=== PATIENT | male | born 1960 | race Caucasian/White ===

== ENCOUNTER 2017-02-27 00:09 | Emergency (ER) | payer SELFPAY ==
[~2017-02-27] VITALS: Ht 165.1 cm; Wt 66.0 kg
[2017-02-27 00:22] LABS: GLUCOSE,POINT OF CARE 128 MG/DL (70-110)
[2017-02-27 01:45] VITALS: BP 141/89
== END 2017-02-27 01:50 | disposition home or self-care (01) ==
LOC: EMS 00:13
DX: S91.311A Laceration without foreign body, right foot, initial encounter (principal); R03.0 Elevated blood-pressure reading, without diagnosis of hypertension; E11.9 Type 2 diabetes mellitus without complications; F17.210 Nicotine dependence, cigarettes, uncomplicated; W25.XXXA Contact with sharp glass, initial encounter; Y93.01 Activity, walking, marching and hiking; Y92.89 Other specified places as the place of occurrence of the external cause; Y99.8 Other external cause status
CPT/HCPCS: 82962; 99284

== ENCOUNTER 2018-06-12 15:47 | Emergency (ER) | payer OTHER ==
[~2018-06-12] VITALS: Ht 165.1 cm; Wt 68.2 kg
[2018-06-12 16:09] LABS: GLUCOSE,POINT OF CARE 183 MG/DL (70-110)
[2018-06-12] MEDS ORDERED: TRIAMCINOLONE ACETONIDE 40 MG/ML VIAL IM ONE (18:45)
[2018-06-12] MEDS ORDERED: HydrOXYzine HCL 25 MG TABLET PO ONE (18:45)
[2018-06-12] MEDS ORDERED: AQUAPHOR OINTMENT 50 GM TUBE TP ONE (18:45)
[2018-06-12 18:50] VITALS: BP 157/99
== END 2018-06-12 19:21 | disposition home or self-care (01) ==
LOC: EMS 15:47
DX: L30.9 Dermatitis, unspecified (principal); E11.9 Type 2 diabetes mellitus without complications; F17.210 Nicotine dependence, cigarettes, uncomplicated
CPT/HCPCS: 82962; 96372; 99283; 99406; J3301

== ENCOUNTER 2018-06-27 05:58 | Inpatient (IN) | payer OTHER ==
[~2018-06-27] VITALS: Ht 162.6 cm; Wt 59.9 kg
[2018-06-27] MEDS ORDERED: IPRATROPIUM BROMIDE 0.5 MG/2.5 ML NEB SOLUTION NEB ONE (06:45)
[2018-06-27] MEDS ORDERED: ALBUTEROL SULFATE 2.5 MG/0.5 ML NEB SOLUTION NEB ONE (06:45)
[2018-06-27] MEDS ORDERED: ASPIRIN 81 MG CHEWABLE TABLET PO ONE (06:45)
[2018-06-27 06:53] LABS: BASOPHILS % (AUTO) 1.2 % (0.0-2.0); EOSINOPHILS % (AUTO) 5.8 % (1.0-6.0); HEMATOCRIT 43.1 % (41-53); HEMOGLOBIN 13.8 g/dL (13.5-17.5); LYMPHOCYTES # (AUTO) 0.8 K/uL (1.0-4.8); LYMPHOCYTES % (AUTO) 10.8 % (22.0-44.0); MEAN CORPUSCULAR HEMOGLOBIN 21.5 pg (26.0-34.0); MEAN CORPUSCULAR HGB CONC 31.9 G/dL (31.0-37.0); MEAN CORPUSCULAR VOLUME 67 fL (80-100); MONOCYTES # (AUTO) 0.7 K/uL (0.1-1.0); NEUTROPHILS # (AUTO) 5.4 K/uL (1.8-7.7); NEUTROPHILS % (AUTO) 73.2 % (40.0-70.0); PLATELET COUNT (AUTO) 292 K/uL (150-450); RED BLOOD CELL COUNT(AUTO) 6.41 MIL/uL (4.50-5.90); RED CELL DISTRIBUTION WIDTH 17.6 % (11.5-14.5)
[2018-06-27 07:04] LABS: CALCIUM, TOTAL 7.6 mg/dL (8.8-10.5); CREATININE 1.75 mg/dL (0.60-1.30); POTASSIUM 4.3 mmol/L (3.5-5.1)
[2018-06-27 07:29] LABS: ALBUMIN 2.9 g/dL (3.4-5.0); BILIRUBIN,TOTAL 0.3 mg/dL (0.1-1.0); TOTAL PROTEIN, SERUM 6.2 g/dL (6.4-8.2)
[2018-06-27 09:04] LABS: APPEARANCE,URINE CLEAR (CLEAR); BILIRUBIN,URINE NEGATIVE (NEGATIVE); GLUCOSE, URINE (UA) 100 mg/dL (NEGATIVE); KETONES,URINE NEGATIVE (NEGATIVE); LEUKOCYTE ESTERASE ,URINE NEGATIVE (NEGATIVE); NITRATE,URINE NEGATIVE (NEGATIVE); OCCULT BLOOD,URINE NEGATIVE (NEGATIVE); PROTEIN,URINE TRACE (NEGATIVE); UROBILINOGEN,URINE 0.2 mg/dL (<=1.0)
[2018-06-27 09:28] LABS: RBC,URINE None Seen /HPF (0-2); WBC,URINE 0-2 /HPF (0-5)
[2018-06-27 09:29] LABS: BACTERIA,URINE Rare /HPF (None Seen); SQUAMOUS EPITHELIAL CELL,UR Few /LPF (None Seen)
[2018-06-27] MEDS ORDERED: ONDANSETRON HCL 4 MG/2 ML VIAL IVP PRN ×2 (11:15→14:15)
[2018-06-27] MEDS ORDERED: ACETAMINOPHEN 325 MG TABLET PO PRN ×2 (11:15→14:15)
[2018-06-27] MEDS ORDERED: 0.9% SODIUM CHLORIDE 10 ML SYRINGE IVP PRN (11:15)
[2018-06-27 11:41] VITALS: BP 162/86
[2018-06-27] MEDS ORDERED: PNEUMOCOCCAL VACCINE POLYVALENT 0.5 ML VIAL [PPSV23] IM ONE (13:15)
[2018-06-27] MEDS ORDERED: HYDROCODONE/ACETAMINOPHEN 5-325 MG TABLET PO PRN (14:15)
[2018-06-27] MEDS ORDERED: MAGNESIUM HYDROXIDE SUSPENSION 30 ML UDCUP PO PRN (14:15)
[2018-06-27] MEDS ORDERED: MORPHINE SULFATE 2 MG/ML SYRINGE IVP PRN (14:15)
[2018-06-27] MEDS ORDERED: ZOLPIDEM TARTRATE 5 MG TABLET PO PRN (14:15)
[2018-06-27] MEDS ORDERED: BISACODYL 10 MG RECTAL RECTAL SUPPOSITORY PR PRN (14:15)
[2018-06-27] MEDS: HEPARIN SODIUM,PORCINE 5,000 UNITS/ML VIAL SQ SCH (15:21)
[2018-06-27 16:27] VITALS: BP 177/102
[2018-06-27 16:47] VITALS: BP 165/89
[2018-06-27 21:06] VITALS: BP 143/83
[2018-06-27] MEDS: FUROSEMIDE 20 MG/2 ML VIAL IVP SCH (22:03)
[2018-06-27] MEDS: DOCUSATE SODIUM 100 MG CAPSULE PO SCH (22:03)
[2018-06-27] MEDS: CARVEDILOL 6.25 MG TABLET PO SCH (22:03)
[2018-06-28] VITALS (7 sets, daily range): BP systolic 141–161; BP diastolic 81–106
[2018-06-28] MEDS: HEPARIN SODIUM,PORCINE 5,000 UNITS/ML VIAL SQ SCH ×3 (00:15→17:10)
[2018-06-28 02:47] LABS: AMPHET/METH SCREEN,URINE POSITIVE (NEGATIVE); BARBITURATE SCREEN, URINE NEGATIVE (NEGATIVE); BENZODIAZEPINES SCREEN,URINE NEGATIVE (NEGATIVE); CANNABINOID SCREEN,URINE NEGATIVE (NEGATIVE); COCAINE SCREEN,URINE NEGATIVE (NEGATIVE); METHADONE SCREEN, URINE NEGATIVE (NEGATIVE); OPIATE SCREEN,URINE NEGATIVE (NEGATIVE); PHENCYCLIDINE SCREEN,URINE NEGATIVE (NEGATIVE)
[2018-06-28] MEDS: LISINOPRIL 5 MG TABLET PO SCH (07:35)
[2018-06-28] MEDS: CARVEDILOL 6.25 MG TABLET PO SCH ×2 (07:35→19:46)
[2018-06-28] MEDS: ASPIRIN 81 MG EC TABLET PO SCH (07:35)
[2018-06-28] MEDS: PANTOPRAZOLE SODIUM 40 MG DR TABLET PO SCH (07:35)
[2018-06-28] MEDS: FUROSEMIDE 20 MG/2 ML VIAL IVP SCH (07:35)
[2018-06-28] MEDS: DOCUSATE SODIUM 100 MG CAPSULE PO SCH ×2 (07:41→19:46)
[2018-06-28] MEDS: FUROSEMIDE 40 MG/4 ML VIAL IVP SCH (19:46)
[2018-06-29] VITALS (7 sets, daily range): BP systolic 127–158; BP diastolic 79–109
[2018-06-29 05:54] LABS: BASOPHILS % (AUTO) 1.2 % (0.0-2.0); EOSINOPHILS % (AUTO) 7.1 % (1.0-6.0); HEMATOCRIT 50.4 % (41-53); HEMOGLOBIN 16.2 g/dL (13.5-17.5); LYMPHOCYTES % (AUTO) 13.4 % (22.0-44.0); MEAN CORPUSCULAR HEMOGLOBIN 21.7 pg (26.0-34.0); MEAN CORPUSCULAR HGB CONC 32.2 G/dL (31.0-37.0); MEAN CORPUSCULAR VOLUME 67 fL (80-100); MONOCYTES # (AUTO) 0.7 K/uL (0.1-1.0); MONOCYTES % (AUTO) 9.2 % (2.0-9.0); NEUTROPHILS # (AUTO) 5.2 K/uL (1.8-7.7); NEUTROPHILS % (AUTO) 69.1 % (40.0-70.0); PLATELET COUNT (AUTO) 292 K/uL (150-450); RED BLOOD CELL COUNT(AUTO) 7.47 MIL/uL (4.50-5.90); RED CELL DISTRIBUTION WIDTH 17.6 % (11.5-14.5)
[2018-06-29 06:24] LABS: CALCIUM, TOTAL 8.3 mg/dL (8.8-10.5); CREATININE 1.74 mg/dL (0.60-1.30); POTASSIUM 4.5 mmol/L (3.5-5.1)
[2018-06-29] MEDS: CARVEDILOL 6.25 MG TABLET PO SCH ×2 (07:46→20:03)
[2018-06-29] MEDS: PANTOPRAZOLE SODIUM 40 MG DR TABLET PO SCH (07:46)
[2018-06-29] MEDS: LISINOPRIL 5 MG TABLET PO SCH (07:46)
[2018-06-29] MEDS: FUROSEMIDE 40 MG/4 ML VIAL IVP SCH (07:46)
[2018-06-29] MEDS: HEPARIN SODIUM,PORCINE 5,000 UNITS/ML VIAL SQ SCH ×4 (07:46→23:19)
[2018-06-29] MEDS: ASPIRIN 81 MG EC TABLET PO SCH (07:46)
[2018-06-29] MEDS: DOCUSATE SODIUM 100 MG CAPSULE PO SCH ×2 (07:47→20:03)
[2018-06-29] MEDS: FUROSEMIDE 20 MG TABLET PO SCH (20:03)
[2018-06-30 03:49] VITALS: BP 141/76
[2018-06-30 07:09] VITALS: BP 132/91
[2018-06-30] MEDS: HEPARIN SODIUM,PORCINE 5,000 UNITS/ML VIAL SQ SCH (08:09)
[2018-06-30] MEDS: DOCUSATE SODIUM 100 MG CAPSULE PO SCH (08:09)
[2018-06-30] MEDS: LISINOPRIL 5 MG TABLET PO SCH (08:09)
[2018-06-30] MEDS: CARVEDILOL 6.25 MG TABLET PO SCH (08:09)
[2018-06-30] MEDS: FUROSEMIDE 20 MG TABLET PO SCH (08:09)
[2018-06-30] MEDS: PANTOPRAZOLE SODIUM 40 MG DR TABLET PO SCH (08:09)
[2018-06-30] MEDS: ASPIRIN 81 MG EC TABLET PO SCH (08:09)
[2018-06-30] MEDS ORDERED: ASPI-556 PO (11:17)
[2018-06-30] MEDS ORDERED: LISI5TAB PO (11:18)
[2018-06-30] MEDS ORDERED: CARV6.2579 PO (11:18)
[2018-06-30] MEDS ORDERED: FURO-152 PO (11:18)
[2018-06-30 11:25] VITALS: BP 123/81
== END 2018-06-30 14:10 | disposition home or self-care (01) | DRG 194 ==
LOC: EMS 05:58 → 5S 10:37
PROVIDERS: ADMIT Hospitalist; ATTEND Hospitalist
DX: I13.0 Hypertensive heart and chronic kidney disease with heart failure and stage 1 through stage 4 chronic kidney disease, or unspecified chronic kidney disease (principal); N17.9 Acute kidney failure, unspecified; E11.22 Type 2 diabetes mellitus with diabetic chronic kidney disease; N18.3 Chronic kidney disease, stage 3 (moderate); I16.0 Hypertensive urgency; I50.43 Acute on chronic combined systolic (congestive) and diastolic (congestive) heart failure; E78.5 Hyperlipidemia, unspecified; F17.210 Nicotine dependence, cigarettes, uncomplicated; Z82.49 Family history of ischemic heart disease and other diseases of the circulatory system; Z91.14 Patient's other noncompliance with medication regimen
CPT/HCPCS: 80307; 93005; 93306; 94640; 99285; J1644; J1940

== ENCOUNTER 2018-12-15 12:42 | Inpatient (IN) | payer OTHER ==
[~2018-12-15] VITALS: Ht 165.1 cm; Wt 68.8 kg
[~2018-12-15 12:42] MED LIST: ASPI-556 PO; CARV6.2579 PO; FURO-152 PO; ISOS30TA6 PO; LISI5TAB PO
[2018-12-15 12:59] LABS: GLUCOSE,POINT OF CARE 145 MG/DL (70-110)
[2018-12-15 13:54] LABS: BASOPHILS % (AUTO) 0.5 % (0.0-2.0); EOSINOPHILS % (AUTO) 2.7 % (1.0-6.0); HEMATOCRIT 47.2 % (41-53); HEMOGLOBIN 14.9 g/dL (13.5-17.5); LYMPHOCYTES # (AUTO) 0.9 K/uL (1.0-4.8); LYMPHOCYTES % (AUTO) 13.1 % (22.0-44.0); MEAN CORPUSCULAR HGB CONC 31.5 G/dL (31.0-37.0); MEAN CORPUSCULAR VOLUME 67 fL (80-100); MONOCYTES # (AUTO) 0.9 K/uL (0.1-1.0); NEUTROPHILS # (AUTO) 4.9 K/uL (1.8-7.7); NEUTROPHILS % (AUTO) 70.7 % (40.0-70.0); PLATELET COUNT (AUTO) 172 K/uL (150-450); RED BLOOD CELL COUNT(AUTO) 7.07 MIL/uL (4.50-5.90); RED CELL DISTRIBUTION WIDTH 15.9 % (11.5-14.5)
[2018-12-15] MEDS ORDERED: SODIUM CHLORIDE 0.9% 1,000 ML IV ONE ×2 (14:00→16:30)
[2018-12-15 14:08] LABS: CREATININE 3.64 mg/dL (0.60-1.30)
[2018-12-15 14:10] LABS: ALBUMIN 3.6 g/dL (3.4-5.0); BILIRUBIN,TOTAL 0.3 mg/dL (0.1-1.0); TOTAL PROTEIN, SERUM 8.4 g/dL (6.4-8.2)
[2018-12-15 14:16] LABS: LACTIC ACID 0.7 mmol/L (0.4-2.0)
[2018-12-15] MEDS ORDERED: IPRATROPIUM BROMIDE 0.5 MG/2.5 ML NEB SOLUTION NEB ONE (15:00)
[2018-12-15] MEDS ORDERED: PredniSONE 20 MG TABLET PO ONE (15:00)
[2018-12-15] MEDS ORDERED: ALBUTEROL SULFATE 2.5 MG/0.5 ML NEB SOLUTION NEB ONE (15:00)
[2018-12-15] MEDS ORDERED: 0.9% SODIUM CHLORIDE 15 ML NEB SOLUTION NEB ONE (15:35)
[2018-12-15 15:49] LABS: INFLUENZA TYPE A NEGATIVE FOR TYPE A (NEGATIVE); INFLUENZA TYPE B NEGATIVE FOR TYPE B (NEGATIVE)
[2018-12-15] MEDS ORDERED: 0.9% SODIUM CHLORIDE 10 ML SYRINGE IVP PRN ×2 (16:30→23:15)
[2018-12-15] MEDS ORDERED: ONDANSETRON HCL 4 MG/2 ML VIAL IVP PRN ×2 (16:30→23:15)
[2018-12-15] MEDS ORDERED: ACETAMINOPHEN 325 MG TABLET PO PRN (16:30)
[2018-12-15] MEDS ORDERED: MAG HYDROX/AL HYDROX/SIMETH 30 ML SUSP UDCUP PO ONE (19:15)
[2018-12-15] MEDS ORDERED: 0.9% SODIUM CHLORIDE 5 ML NEB SOLUTION NEB ONE (19:29)
[2018-12-15] MEDS ORDERED: ASPIRIN 81 MG CHEWABLE TABLET PO ONE (19:30)
[2018-12-15] MEDS ORDERED: NITROGLYCERIN 0.3 MG SUBLINGUAL TABLET #100 SL ONE (19:30)
[2018-12-15] MEDS ORDERED: ASPIRIN 325 MG TABLET PO ONE (19:30)
[2018-12-15] MEDS ORDERED: ALBUTEROL SULFATE 2.5 MG/0.5 ML NEB SOLUTION NEB SCH (20:00)
[2018-12-15] MEDS ORDERED: IPRATROPIUM BROMIDE 0.5 MG/2.5 ML NEB SOLUTION NEB SCH (20:00)
[2018-12-15 21:40] VITALS: BP 141/67
[2018-12-15 23:00] VITALS: BP 114/64
[2018-12-15] MEDS ORDERED: INSULIN LISPRO 100 UNITS/ML SQ PRN (23:15)
[2018-12-15] MEDS ORDERED: IPRATROPIUM BROMIDE 0.5 MG/2.5 ML NEB SOLUTION NEB PRN (23:15)
[2018-12-15] MEDS ORDERED: ALBUTEROL SULFATE 2.5 MG/0.5 ML NEB SOLUTION NEB PRN (23:15)
[2018-12-15] MEDS ORDERED: ACETAMINOPHEN 650 MG/20.3 ML SOLUTION UDCUP PO PRN (23:15)
[2018-12-15] MEDS ORDERED: ZOLPIDEM TARTRATE 5 MG TABLET PO PRN (23:15)
[2018-12-15] MEDS ORDERED: GLUCAGON,HUMAN RECOMBINANT 1 MG VIAL IM PRN (23:15)
[2018-12-15] MEDS: MethylPREDNISolone SOD SUCC 40 MG/ML VIAL IVP SCH (23:31)
[2018-12-15] MEDS: DOCUSATE SODIUM 100 MG CAPSULE PO SCH (23:31)
[2018-12-15] MEDS: CARVEDILOL 6.25 MG TABLET PO SCH (23:32)
[2018-12-16] MEDS ORDERED: DEXTROSE 50%-WATER 25 GM/50 ML SYG IVP PRN (00:30)
[2018-12-16] MEDS: ALBUTEROL SULFATE 2.5 MG/0.5 ML NEB SOLUTION NEB SCH ×4 (02:14→20:08)
[2018-12-16] MEDS: IPRATROPIUM BROMIDE 0.5 MG/2.5 ML NEB SOLUTION NEB SCH ×4 (02:14→20:08)
[2018-12-16 05:24] VITALS: BP 110/59
[2018-12-16] MEDS: INSULIN LISPRO 100 UNITS/ML SQ PRN ×3 (06:08→18:24)
[2018-12-16 06:54] LABS: GLUCOMETER DEV NAME(LOC) 5N.1; GLUCOSE,POINT OF CARE 168 MG/DL (70-110)
[2018-12-16 07:01] LABS: BASOPHILS % (AUTO) 0.2 % (0.0-2.0); EOSINOPHILS % (AUTO) 0 % (1.0-6.0); HEMATOCRIT 45.2 % (41-53); HEMOGLOBIN 13.9 g/dL (13.5-17.5); LYMPHOCYTES # (AUTO) 0.4 K/uL (1.0-4.8); LYMPHOCYTES % (AUTO) 9.7 % (22.0-44.0); MEAN CORPUSCULAR HGB CONC 30.7 G/dL (31.0-37.0); MEAN CORPUSCULAR VOLUME 68 fL (80-100); MONOCYTES # (AUTO) 0.4 K/uL (0.1-1.0); MONOCYTES % (AUTO) 9.2 % (2.0-9.0); NEUTROPHILS # (AUTO) 3.3 K/uL (1.8-7.7); NEUTROPHILS % (AUTO) 80.9 % (40.0-70.0); PLATELET COUNT (AUTO) 169 K/uL (150-450); RED BLOOD CELL COUNT(AUTO) 6.61 MIL/uL (4.50-5.90); RED CELL DISTRIBUTION WIDTH 15.8 % (11.5-14.5)
[2018-12-16 07:50] VITALS: BP 118/56
[2018-12-16] MEDS ORDERED: LISINOPRIL 5 MG TABLET PO SCH (09:00)
[2018-12-16] MEDS ORDERED: ISOSORBIDE MONONITRATE 30 MG ER TABLET PO SCH (09:00)
[2018-12-16] MEDS ORDERED: ENOXAPARIN SODIUM 40 MG/0.4 ML PF SYRINGE SQ SCH (09:00)
[2018-12-16] MEDS: CARVEDILOL 6.25 MG TABLET PO SCH (09:15)
[2018-12-16] MEDS: PANTOPRAZOLE SODIUM 40 MG/VIAL IVP SCH (09:16)
[2018-12-16] MEDS: DOCUSATE SODIUM 100 MG CAPSULE PO SCH ×2 (09:16→19:41)
[2018-12-16] MEDS: MethylPREDNISolone SOD SUCC 40 MG/ML VIAL IVP SCH ×2 (09:16→19:41)
[2018-12-16] MEDS: ASPIRIN 81 MG EC TABLET PO SCH (09:16)
[2018-12-16] MEDS ORDERED: SODIUM CHLORIDE 0.9% 1,000 ML IV ONE (10:45)
[2018-12-16 10:58] VITALS: BP 128/72
[2018-12-16] MEDS ORDERED: DIVA250T4 PO (14:16)
[2018-12-16] MEDS ORDERED: LINA5TAB PO (14:16)
[2018-12-16 14:49] LABS: GLUCOMETER DEV NAME(LOC) 5N.1; GLUCOSE,POINT OF CARE 150 MG/DL (70-110)
[2018-12-16 15:43] VITALS: BP 113/66
[2018-12-16 19:01] LABS: CALCIUM, TOTAL 7.8 mg/dL (8.8-10.5); CREATININE 1.78 mg/dL (0.60-1.30); MAGNESIUM 2.7 mg/dL (1.80-2.40); PHOSPHORUS 2.8 mg/dL (2.5-4.9); POTASSIUM 4.7 mmol/L (3.5-5.1)
[2018-12-16 20:03] VITALS: BP 105/61
[2018-12-16 23:23] VITALS: BP 129/71
[2018-12-17] MEDS: SODIUM CHLORIDE 0.9% 1,000 ML IV SCH ×2 (01:16→08:00)
[2018-12-17] MEDS: ALBUTEROL SULFATE 2.5 MG/0.5 ML NEB SOLUTION NEB SCH ×4 (02:21→20:00)
[2018-12-17] MEDS: IPRATROPIUM BROMIDE 0.5 MG/2.5 ML NEB SOLUTION NEB SCH ×4 (02:21→20:00)
[2018-12-17 03:24] LABS: APPEARANCE,URINE CLEAR (CLEAR); BILIRUBIN,URINE NEGATIVE (NEGATIVE); GLUCOSE, URINE (UA) 500 mg/dL (NEGATIVE); KETONES,URINE NEGATIVE (NEGATIVE); LEUKOCYTE ESTERASE ,URINE NEGATIVE (NEGATIVE); NITRATE,URINE NEGATIVE (NEGATIVE); OCCULT BLOOD,URINE NEGATIVE (NEGATIVE); PROTEIN,URINE NEGATIVE (NEGATIVE); UROBILINOGEN,URINE 0.2 mg/dL (<=1.0)
[2018-12-17 03:55] LABS: CREATININE,URINE RANDOM 73.2 mg/dL (30.0-125.0); SODIUM,URINE RANDOM 38 mmol/l (20-110); UREA NITROGEN,URINE RANDOM 1357 mg/dL (350-1000)
[2018-12-17 04:08] LABS: BACTERIA,URINE None Seen /HPF (None Seen); RBC,URINE None Seen /HPF (0-2); SQUAMOUS EPITHELIAL CELL,UR None Seen /LPF (None Seen); WBC,URINE None Seen /HPF (0-5)
[2018-12-17 04:35] VITALS: BP 136/68
[2018-12-17 05:54] LABS: GLUCOMETER DEV NAME(LOC) 5S.1; GLUCOSE,POINT OF CARE 231 MG/DL (70-110)
[2018-12-17 05:59] LABS: BASOPHILS % (AUTO) 0.1 % (0.0-2.0); EOSINOPHILS % (AUTO) 0 % (1.0-6.0); HEMOGLOBIN 12.5 g/dL (13.5-17.5); LYMPHOCYTES # (AUTO) 0.4 K/uL (1.0-4.8); MEAN CORPUSCULAR HEMOGLOBIN 21.2 pg (26.0-34.0); MEAN CORPUSCULAR HGB CONC 31.2 G/dL (31.0-37.0); MEAN CORPUSCULAR VOLUME 68 fL (80-100); MONOCYTES # (AUTO) 0.4 K/uL (0.1-1.0); MONOCYTES % (AUTO) 6.7 % (2.0-9.0); NEUTROPHILS # (AUTO) 5.8 K/uL (1.8-7.7); PLATELET COUNT (AUTO) 165 K/uL (150-450); RED BLOOD CELL COUNT(AUTO) 5.91 MIL/uL (4.50-5.90); RED CELL DISTRIBUTION WIDTH 15.9 % (11.5-14.5)
[2018-12-17 06:01] LABS: NEUTROPHILS % (AUTO) 87.2 % (40.0-70.0)
[2018-12-17 06:22] LABS: HEMOGLOBIN A1C 7.9 % (4.5-6.2)
[2018-12-17] MEDS: INSULIN LISPRO 100 UNITS/ML SQ PRN (06:31)
[2018-12-17 07:19] VITALS: BP 128/81
[2018-12-17 07:23] LABS: ALBUMIN 2.7 g/dL (3.4-5.0); BILIRUBIN,TOTAL 0.2 mg/dL (0.1-1.0); CALCIUM, TOTAL 7.8 mg/dL (8.8-10.5); CREATININE 1.5 mg/dL (0.60-1.30); MAGNESIUM 2.7 mg/dL (1.80-2.40); POTASSIUM 4.7 mmol/L (3.5-5.1); TOTAL PROTEIN, SERUM 6.4 g/dL (6.4-8.2)
[2018-12-17 08:04] LABS: GLUCOMETER DEV NAME(LOC) 5N.1; GLUCOSE,POINT OF CARE 141 MG/DL (70-110)
[2018-12-17 08:04] LABS: GLUCOMETER DEV NAME(LOC) 5N.1; GLUCOSE,POINT OF CARE 250 MG/DL (70-110)
[2018-12-17] MEDS: DOCUSATE SODIUM 100 MG CAPSULE PO SCH (08:13)
[2018-12-17] MEDS: PANTOPRAZOLE SODIUM 40 MG/VIAL IVP SCH (08:14)
[2018-12-17] MEDS: ASPIRIN 81 MG EC TABLET PO SCH (08:14)
[2018-12-17] MEDS: MethylPREDNISolone SOD SUCC 40 MG/ML VIAL IVP SCH (08:14)
[2018-12-17 11:05] VITALS: BP 142/80
[2018-12-17 13:09] LABS: GLUCOMETER DEV NAME(LOC) 5S.1; GLUCOSE,POINT OF CARE 135 MG/DL (70-110)
[2018-12-17 16:12] VITALS: BP 156/90
== END 2018-12-17 18:30 | disposition home or self-care (01) | DRG 469 ==
LOC: EMS 12:42 → 5S 20:00
PROVIDERS: ADMIT Internal Medicine; ATTEND Internal Medicine
DX: N17.9 Acute kidney failure, unspecified (principal); I95.9 Hypotension, unspecified; I13.0 Hypertensive heart and chronic kidney disease with heart failure and stage 1 through stage 4 chronic kidney disease, or unspecified chronic kidney disease; E11.22 Type 2 diabetes mellitus with diabetic chronic kidney disease; R65.10 Systemic inflammatory response syndrome (SIRS) of non-infectious origin without acute organ dysfunction; I50.32 Chronic diastolic (congestive) heart failure; J44.1 Chronic obstructive pulmonary disease with (acute) exacerbation; F17.210 Nicotine dependence, cigarettes, uncomplicated; N18.9 Chronic kidney disease, unspecified; N40.0 Benign prostatic hyperplasia without lower urinary tract symptoms; E78.5 Hyperlipidemia, unspecified; Z90.49 Acquired absence of other specified parts of digestive tract; Z79.82 Long term (current) use of aspirin; Z79.899 Other long term (current) drug therapy; Z82.49 Family history of ischemic heart disease and other diseases of the circulatory system
CPT/HCPCS: 76770; 82570; 83036; 83605; 83735; 84100; 84300; 84540; 87040; 87804; 93005; 93306; 94640; 94644; 99291; C9113; G0378; J1650; J2920; J7030

== ENCOUNTER 2020-12-13 01:14 | Emergency (ER) | payer MEDICARE, OTHER ==
[~2020-12-13] VITALS: Ht 165.1 cm; Wt 68.2 kg
[~2020-12-13 01:14] MED LIST changes: +DIVA250T4 PO; -FURO-152 PO; -ISOS30TA6 PO; +LINA5TAB PO; -LISI5TAB PO
[2020-12-13 01:26] VITALS: BP 143/93
[2020-12-13] MEDS ORDERED: CEPHALEXIN MONOHYDRATE 500 MG CAPSULE PO ONE (02:15)
[2020-12-13] MEDS ORDERED: SULFAMETHOX/TRIMETH DS 800-160 MG/TABLET PO ONE (02:15)
[2020-12-13] MEDS ORDERED: KETOROLAC TROMETHAMINE 30 MG/ML VIAL IM ONE (02:15)
== END 2020-12-13 02:48 | disposition home or self-care (01) ==
LOC: EMS 01:16
DX: L02.831 Carbuncle of head [any part, except face] (principal); I11.0 Hypertensive heart disease with heart failure; I50.9 Heart failure, unspecified; E11.9 Type 2 diabetes mellitus without complications; F17.210 Nicotine dependence, cigarettes, uncomplicated; Z79.82 Long term (current) use of aspirin
CPT/HCPCS: 96372; 99284; J1885; 99283

== ENCOUNTER 2021-05-29 12:53 | Emergency (ER) | payer OTHER ==
[~2021-05-29] VITALS: Ht 165.1 cm; Wt 70.5 kg
[2021-05-29 13:07] VITALS: BP 137/91
== END 2021-05-29 13:44 | disposition left against medical advice (07) ==
LOC: EMS 12:53
DX: R53.1 Weakness (principal); E11.9 Type 2 diabetes mellitus without complications; I11.0 Hypertensive heart disease with heart failure; I50.9 Heart failure, unspecified; F17.210 Nicotine dependence, cigarettes, uncomplicated; Z79.82 Long term (current) use of aspirin
CPT/HCPCS: 82962; 99282

== ENCOUNTER 2021-07-18 16:35 | Emergency (ER) | payer OTHER ==
[~2021-07-18] VITALS: Ht 165.1 cm; Wt 68.2 kg
[2021-07-18] MEDS ORDERED: DiphenhydrAMINE HCL 50 MG/ML VIAL IVP ONE (18:15)
[2021-07-18] MEDS ORDERED: KETOROLAC TROMETHAMINE 30 MG/ML VIAL IVP ONE (18:15)
[2021-07-18] MEDS ORDERED: METOCLOPRAMIDE HCL 5 MG/ML 2 ML VIAL IVP ONE (18:15)
[2021-07-18 18:21] VITALS: BP 130/81
== END 2021-07-18 19:56 | disposition home or self-care (01) ==
LOC: EMS 16:35
DX: R51.9 Headache, unspecified (principal)
CPT/HCPCS: 70450; 96374; 96375; 99284; J1200; J1885; J2765

== ENCOUNTER 2021-07-28 16:53 | Emergency (ER) | payer OTHER ==
[~2021-07-28] VITALS: Ht 165.1 cm; Wt 68.2 kg
[2021-07-28] MEDS ORDERED: ACETAMINOPHEN 325 MG TABLET PO ONE (17:45)
[2021-07-28] MEDS ORDERED: FUROSEMIDE 20 MG TABLET PO ONE (17:45)
[2021-07-28] MEDS ORDERED: PERMETHRIN 5% 60 GM CREAM TP ONE (17:45)
[2021-07-28 20:00] VITALS: BP 154/87
== END 2021-07-28 20:13 | disposition home or self-care (01) ==
LOC: EMS 16:53
DX: B86 Scabies (principal); I11.0 Hypertensive heart disease with heart failure; I50.9 Heart failure, unspecified; E11.9 Type 2 diabetes mellitus without complications
CPT/HCPCS: 99283; 99284

== ENCOUNTER 2022-05-23 18:57 | Emergency (ER) | payer OTHER ==
[~2022-05-23] VITALS: Ht 165.1 cm; Wt 55.4 kg
[2022-05-23] MEDS ORDERED: NITROGLYCERIN 2% (1 GM=INCH) PACKET TP ONE (19:30)
[2022-05-23] MEDS ORDERED: ASPIRIN 81 MG CHEWABLE TABLET PO ONE (19:30)
[2022-05-23 19:43] LABS: BASOPHILS % (AUTO) 1.2 % (0.0-2.0); EOSINOPHILS % (AUTO) 10.2 % (1.0-6.0); HEMATOCRIT 39.7 % (41-53); HEMOGLOBIN 12.6 g/dL (13.5-17.5); LYMPHOCYTES # (AUTO) 1.1 K/uL (1.0-4.8); LYMPHOCYTES % (AUTO) 21.7 % (22.0-44.0); MEAN CORPUSCULAR HEMOGLOBIN 21.3 pg (26.0-34.0); MEAN CORPUSCULAR HGB CONC 31.7 G/dL (31.0-37.0); MEAN CORPUSCULAR VOLUME 67 fL (80-100); MONOCYTES # (AUTO) 0.5 K/uL (0.1-1.0); MONOCYTES % (AUTO) 9.6 % (2.0-9.0); NEUTROPHILS # (AUTO) 2.8 K/uL (1.8-7.7); NEUTROPHILS % (AUTO) 57.3 % (40.0-70.0); PLATELET COUNT (AUTO) 261 K/uL (150-450); RED BLOOD CELL COUNT(AUTO) 5.92 MIL/uL (4.50-5.90); RED CELL DISTRIBUTION WIDTH 16.8 % (11.5-14.5)
[2022-05-23 20:43] LABS: CALCIUM, TOTAL 8.2 mg/dL (8.8-10.5); CREATININE 1.82 mg/dL (0.60-1.30)
[2022-05-23 20:49] LABS: ALBUMIN 3.1 g/dL (3.4-5.0); BILIRUBIN,TOTAL 0.7 mg/dL (0.1-1.0); TOTAL PROTEIN, SERUM 6.6 g/dL (6.4-8.2)
[2022-05-23] MEDS ORDERED: LINA5TAB PO (20:54)
[2022-05-23] MEDS ORDERED: CARV6.2579 PO (20:54)
[2022-05-23] MEDS ORDERED: ALBUTEROL SULFATE HFA 90 MCG/PUFF 8 GM INHALER IH ONE (21:00)
[2022-05-23 21:39] VITALS: BP 140/105
== END 2022-05-23 22:30 | disposition home or self-care (01) ==
LOC: EMS 18:57
DX: J44.9 Chronic obstructive pulmonary disease, unspecified (principal); I50.9 Heart failure, unspecified; I11.0 Hypertensive heart disease with heart failure; I25.10 Atherosclerotic heart disease of native coronary artery without angina pectoris; E11.9 Type 2 diabetes mellitus without complications; N28.9 Disorder of kidney and ureter, unspecified; F17.210 Nicotine dependence, cigarettes, uncomplicated; Z98.62 Peripheral vascular angioplasty status
CPT/HCPCS: 71045; 80053; 83880; 84484; 85025; 93005; 99285; J3535; 36415-L1; 36415-TC

== ENCOUNTER 2022-06-01 16:27 | Emergency (ER) | payer OTHER ==
[~2022-06-01] VITALS: Ht 165.1 cm; Wt 63.6 kg
[2022-06-01] MEDS ORDERED: FURO20 PO (16:40)
[2022-06-01 17:01] LABS: BASOPHILS % (AUTO) 1.1 % (0.0-2.0); EOSINOPHILS % (AUTO) 8.4 % (1.0-6.0); HEMATOCRIT 39.1 % (41-53); HEMOGLOBIN 12.3 g/dL (13.5-17.5); LYMPHOCYTES % (AUTO) 16.5 % (22.0-44.0); MEAN CORPUSCULAR HEMOGLOBIN 21.1 pg (26.0-34.0); MEAN CORPUSCULAR HGB CONC 31.5 G/dL (31.0-37.0); MEAN CORPUSCULAR VOLUME 67 fL (80-100); MONOCYTES # (AUTO) 0.6 K/uL (0.1-1.0); MONOCYTES % (AUTO) 9.2 % (2.0-9.0); NEUTROPHILS % (AUTO) 64.8 % (40.0-70.0); PLATELET COUNT (AUTO) 259 K/uL (150-450); RED BLOOD CELL COUNT(AUTO) 5.83 MIL/uL (4.50-5.90); RED CELL DISTRIBUTION WIDTH 17.3 % (11.5-14.5)
[2022-06-01 17:10] LABS: PLATELET MORPHOLOGY COMMENT LARGE PLTS PRESENT
[2022-06-01 17:17] LABS: CALCIUM, TOTAL 8.3 mg/dL (8.8-10.5); CREATININE 2.1 mg/dL (0.60-1.30); POTASSIUM 3.5 mmol/L (3.5-5.1)
[2022-06-01 17:24] LABS: ALBUMIN 3.1 g/dL (3.4-5.0); BILIRUBIN,TOTAL 0.3 mg/dL (0.1-1.0); TOTAL PROTEIN, SERUM 6.7 g/dL (6.4-8.2)
[2022-06-01] MEDS ORDERED: PredniSONE 20 MG TABLET PO ONE (17:45)
[2022-06-01] MEDS ORDERED: ALBUTEROL SULFATE 2.5 MG/0.5 ML NEB SOLUTION NEB ONE (17:45)
[2022-06-01] MEDS ORDERED: MethylPREDNISolone SOD SUCC 125 MG/2 ML VIAL IVP ONE (17:45)
[2022-06-01] MEDS ORDERED: IPRATROPIUM BROMIDE 0.5 MG/2.5 ML NEB SOLUTION NEB ONE (17:45)
[2022-06-01 18:41] LABS: COVID AG,FIA SOURCE NASOPHARYNGEAL
[2022-06-01] MEDS ORDERED: ALBUTEROL SULFATE HFA 90 MCG/PUFF 8 GM INHALER IH ONE (19:00)
[2022-06-01 19:01] LABS: INFLUENZA TYPE A NEGATIVE FOR TYPE A (NEGATIVE); INFLUENZA TYPE B NEGATIVE FOR TYPE B (NEGATIVE)
[2022-06-01] MEDS ORDERED: AZIT250T9 PO (20:02)
[2022-06-01] MEDS ORDERED: PRED-554 PO (20:02)
[2022-06-01 20:23] VITALS: BP 135/75
== END 2022-06-02 04:59 | disposition home or self-care (01) ==
LOC: EMS 16:27
DX: J44.1 Chronic obstructive pulmonary disease with (acute) exacerbation (principal); I25.10 Atherosclerotic heart disease of native coronary artery without angina pectoris; I13.0 Hypertensive heart and chronic kidney disease with heart failure and stage 1 through stage 4 chronic kidney disease, or unspecified chronic kidney disease; N18.9 Chronic kidney disease, unspecified; I50.9 Heart failure, unspecified; E11.9 Type 2 diabetes mellitus without complications; F17.210 Nicotine dependence, cigarettes, uncomplicated; Z98.890 Other specified postprocedural states; Z20.822 Contact with and (suspected) exposure to COVID-19
CPT/HCPCS: 99285; 71045; 87426; 80053; 83880; 84484; 85025; 87804; 36415; 94640; 93005; J7512; J3535; J7613

== ENCOUNTER 2022-06-11 02:42 | Emergency (ER) | payer OTHER ==
[~2022-06-11] VITALS: Ht 165.1 cm; Wt 63.2 kg
[~2022-06-11 02:42] MED LIST changes: +FURO20 PO; +PRED-554 PO
[2022-06-11 02:55] VITALS: BP 156/92
== END 2022-06-11 04:23 | disposition left against medical advice (07) ==
LOC: EMS 02:43
DX: Z53.21 Procedure and treatment not carried out due to patient leaving prior to being seen by health care provider (principal)

== ENCOUNTER 2022-06-12 18:15 | Inpatient (IN) | payer OTHER ==
[~2022-06-12] VITALS: Ht 162.6 cm; Wt 57.8 kg
[2022-06-12] MEDS ORDERED: ALBUTEROL SULFATE HFA 90 MCG/PUFF 8 GM INHALER IH ONE (18:45)
[2022-06-12 19:30] LABS: BASOPHILS % (AUTO) 1.8 % (0.0-2.0); EOSINOPHILS % (AUTO) 7.8 % (1.0-6.0); HEMOGLOBIN 12.6 g/dL (13.5-17.5); LYMPHOCYTES # (AUTO) 1.1 K/uL (1.0-4.8); LYMPHOCYTES % (AUTO) 22.5 % (22.0-44.0); MEAN CORPUSCULAR HEMOGLOBIN 21.4 pg (26.0-34.0); MEAN CORPUSCULAR HGB CONC 30.8 G/dL (31.0-37.0); MEAN CORPUSCULAR VOLUME 69 fL (80-100); MONOCYTES # (AUTO) 0.5 K/uL (0.1-1.0); MONOCYTES % (AUTO) 9.5 % (2.0-9.0); NEUTROPHILS # (AUTO) 2.9 K/uL (1.8-7.7); NEUTROPHILS % (AUTO) 58.4 % (40.0-70.0); PLATELET COUNT (AUTO) 315 K/uL (150-450); RED BLOOD CELL COUNT(AUTO) 5.91 MIL/uL (4.50-5.90); RED CELL DISTRIBUTION WIDTH 17.4 % (11.5-14.5)
[2022-06-12 19:38] LABS: ANION GAP 8 mmol/L (8-16); CALCIUM, TOTAL 8.6 mg/dL (8.8-10.5); CARBON DIOXIDE 27 mmol/L (22-29); CHLORIDE 109 mmol/L (98-107); GLUCOSE,RANDOM 129 mg/dL (70-110); SODIUM SERUM 144 mmol/L (136-145); UREA NITROGEN, BLOOD 30 mg/dL (7-18)
[2022-06-12 19:39] LABS: GLOMERULAR FILTR. RATE CALC 34 mL/min (>60)
[2022-06-12 19:45] LABS: ALANINE AMINOTRANSFERASE 60 U/L (12-78); ALBUMIN 3.1 g/dL (3.4-5.0); ALKALINE PHOSPHATASE 120 U/L (46-116); ASPARTATE AMINOTRANSFERASE 27 U/L (15-37); BILIRUBIN,TOTAL 0.3 mg/dL (0.1-1.0); LIPASE 142 U/L (73-393); TOTAL PROTEIN, SERUM 6.8 g/dL (6.4-8.2)
[2022-06-12 19:47] LABS: LACTIC ACID 1.5 mmol/L (0.4-2.0)
[2022-06-12] MEDS ORDERED: MethylPREDNISolone SOD SUCC 125 MG/2 ML VIAL IVP ONE (21:00)
[2022-06-12] MEDS ORDERED: ALBUTEROL SULFATE 2.5 MG/0.5 ML NEB SOLUTION NEB ONE (21:00)
[2022-06-12] MEDS ORDERED: NITROGLYCERIN 2% (1 GM=INCH) PACKET TP ONE (21:00)
[2022-06-12] MEDS ORDERED: FUROSEMIDE 40 MG/4 ML VIAL IVP ONE (21:00)
[2022-06-12] MEDS ORDERED: ASPIRIN 325 MG TABLET PO ONE (21:00)
[2022-06-12] MEDS ORDERED: IPRATROPIUM BROMIDE 0.5 MG/2.5 ML NEB SOLUTION NEB ONE (21:00)
[2022-06-12] MEDS: ALBUTEROL SULFATE 2.5 MG/0.5 ML NEB SOLUTION NEB SCH ×3 (21:15→21:55)
[2022-06-12] MEDS ORDERED: ALBUTEROL SULFATE 2.5 MG/0.5 ML NEB SOLUTION NEB PRN (21:30)
[2022-06-12] MEDS ORDERED: IPRATROPIUM BROMIDE 0.5 MG/2.5 ML NEB SOLUTION NEB PRN (21:30)
[2022-06-12] MEDS ORDERED: ACETAMINOPHEN 325 MG TABLET PO PRN (21:30)
[2022-06-12] MEDS ORDERED: ONDANSETRON HCL 4 MG/2 ML VIAL IVP PRN (21:30)
[2022-06-12] MEDS ORDERED: ZOLPIDEM TARTRATE 5 MG TABLET PO PRN (21:30)
[2022-06-12] MEDS ORDERED: DEXTROSE 50%-WATER 25 GM/50 ML SYRINGE IVP PRN (21:30)
[2022-06-12] MEDS: AmLODIPine BESYLATE 5 MG TABLET PO SCH (21:33)
[2022-06-12 21:51] LABS: AMPHET/METH SCREEN,URINE POSITIVE (NEGATIVE); BARBITURATE SCREEN, URINE NEGATIVE (NEGATIVE); BENZODIAZEPINES SCREEN,URINE NEGATIVE (NEGATIVE); CANNABINOID SCREEN,URINE NEGATIVE (NEGATIVE); COCAINE SCREEN,URINE NEGATIVE (NEGATIVE); METHADONE SCREEN, URINE NEGATIVE (NEGATIVE); OPIATE SCREEN,URINE NEGATIVE (NEGATIVE)
[2022-06-12 21:52] LABS: PHENCYCLIDINE SCREEN,URINE NEGATIVE (NEGATIVE)
[2022-06-12 21:59] LABS: APPEARANCE,URINE CLEAR (CLEAR); BILIRUBIN,URINE NEGATIVE (NEGATIVE); GLUCOSE, URINE (UA) NEGATIVE (NEGATIVE); KETONES,URINE NEGATIVE (NEGATIVE); LEUKOCYTE ESTERASE ,URINE NEGATIVE (NEGATIVE); NITRATE,URINE NEGATIVE (NEGATIVE); OCCULT BLOOD,URINE NEGATIVE (NEGATIVE); PH,URINE 5.5 (5.0-8.0); PROTEIN,URINE NEGATIVE (NEGATIVE); SPECIFIC GRAVITIY, URINE 1.013 (1.003-1.030); UROBILINOGEN,URINE <=1.0 mg/dL (<=1.0)
[2022-06-12 22:08] LABS: BACTERIA,URINE None Seen /HPF (None Seen); RBC,URINE None Seen /HPF (0-2); SQUAMOUS EPITHELIAL CELL,UR Few /LPF (None Seen); WBC,URINE None Seen /HPF (0-5)
[2022-06-12 23:45] VITALS: BP 155/96
[2022-06-13] MEDS: HEPARIN SODIUM,PORCINE 5,000 UNITS/ML VIAL SQ SCH ×3 (00:23→17:36)
[2022-06-13 04:17] VITALS: BP 137/85
[2022-06-13] MEDS: INSULIN LISPRO 100 UNITS/ML SQ PRN ×4 (05:57→21:15)
[2022-06-13] MEDS ORDERED: PNEUMOCOCCAL VACCINE POLYVALENT 0.5 ML VIAL [PPSV23] IM. ONE (07:00)
[2022-06-13 08:16] LABS: GLUCOMETER DEV NAME(LOC) 5S.1B; GLUCOSE,POINT OF CARE 310 MG/DL (70-110)
[2022-06-13 08:32] VITALS: BP 135/88
[2022-06-13] MEDS ORDERED: FAMOTIDINE 20 MG TABLET PO SCH (09:00)
[2022-06-13] MEDS ORDERED: PredniSONE 20 MG TABLET PO SCH (09:00)
[2022-06-13] MEDS: ASPIRIN 81 MG CHEWABLE TABLET PO SCH (09:54)
[2022-06-13] MEDS: DOCUSATE SODIUM 100 MG CAPSULE PO SCH ×2 (09:55→21:00)
[2022-06-13 11:51] VITALS: BP_SYST 126; BP_SYST 134; BP_DIAS 72; BP_DIAS 78
[2022-06-13] MEDS ORDERED: FUROSEMIDE 40 MG/4 ML VIAL IVP SCH (12:15)
[2022-06-13 12:36] LABS: GLUCOMETER DEV NAME(LOC) 5S.1B; GLUCOSE,POINT OF CARE 273 MG/DL (70-110)
[2022-06-13 16:08] VITALS: BP 139/95
[2022-06-13] MEDS: BUDESONIDE 0.5 MG/2 ML NEB SOLUTION NEB SCH (16:41)
[2022-06-13 17:21] LABS: ABG BASE EXCESS -1.4 mmol/L (-2.0-3.0); ABG CARBOXYHEMOGLOBIN 0.4 % (0.0-1.5); ABG HCO3 23.9 mmol/L (22.0-26.0); ABG METHEMOGLOBIN 0.3 % (0.0-1.5); ABG OXYGEN SATURATION 95.9 % (95.0-98.0); ABG OXYHEMOGLOBIN 95.2 % (94.0-100.0); ABG PCO2 34 mmHg (35-45); ABG PH 7.447 (7.35-7.450); ABG TOTAL HEMOGLOBIN 14.9 G/dL (12.0-18.0); PO2, ARTERIAL BG 76.4 mmHg (79.0-87.0); SOURCE, BLOOD GAS ARTERIAL; TEMPERATURE, FAHRENHEIT, BG 98.6 FAHREN (96.0-98.6)
[2022-06-13 17:22] LABS: ABG A-A DIFF O2 33.1 mmHg (10-20.0); O2 DEVICE,BLOOD GAS ROOM AIR (ROOM AIR); SITE, BLOOD GAS LFT RADIAL
[2022-06-13] MEDS: MethylPREDNISolone SOD SUCC 125 MG/2 ML VIAL IVP SCH (17:37)
[2022-06-13 19:47] VITALS: BP 127/77
[2022-06-13 20:46] LABS: GLUCOMETER DEV NAME(LOC) 5S.1B; GLUCOSE,POINT OF CARE 246 MG/DL (70-110)
[2022-06-13] MEDS: AmLODIPine BESYLATE 5 MG TABLET PO SCH (21:12)
[2022-06-13] MEDS: CARVEDILOL 3.125 MG TABLET PO SCH (21:12)
[2022-06-14] MEDS: BUDESONIDE 0.5 MG/2 ML NEB SOLUTION NEB SCH ×4 (00:44→23:49)
[2022-06-14 04:35] VITALS: BP 144/99
[2022-06-14 06:15] LABS: CALCIUM, TOTAL 8.7 mg/dL (8.8-10.5); CREATININE 1.77 mg/dL (0.60-1.30); POTASSIUM 4.4 mmol/L (3.5-5.1)
[2022-06-14 06:17] LABS: GLUCOMETER DEV NAME(LOC) 5S.1B; GLUCOSE,POINT OF CARE 164 MG/DL (70-110)
[2022-06-14] MEDS: INSULIN LISPRO 100 UNITS/ML SQ PRN (06:27)
[2022-06-14 07:44] VITALS: BP 129/51
[2022-06-14] MEDS: HEPARIN SODIUM,PORCINE 5,000 UNITS/ML VIAL SQ SCH ×3 (09:59→17:47)
[2022-06-14] MEDS: CARVEDILOL 3.125 MG TABLET PO SCH ×2 (10:01→20:56)
[2022-06-14] MEDS: ATORVASTATIN CALCIUM 40 MG TABLET PO SCH (10:01)
[2022-06-14] MEDS: LOSARTAN POTASSIUM 25 MG TABLET PO SCH (10:02)
[2022-06-14] MEDS: FUROSEMIDE 40 MG TABLET PO SCH (10:02)
[2022-06-14] MEDS: AmLODIPine BESYLATE 5 MG TABLET PO SCH (10:02)
[2022-06-14] MEDS: DOCUSATE SODIUM 100 MG CAPSULE PO SCH ×2 (10:02→20:56)
[2022-06-14] MEDS: ASPIRIN 81 MG CHEWABLE TABLET PO SCH (10:03)
[2022-06-14] MEDS: MethylPREDNISolone SOD SUCC 125 MG/2 ML VIAL IVP SCH ×3 (11:08→17:46)
[2022-06-14 11:55] VITALS: BP 130/89
[2022-06-14] MEDS ORDERED: AMLO-257 PO (12:04)
[2022-06-14] MEDS ORDERED: FURO40 PO (12:04)
[2022-06-14] MEDS ORDERED: PRED-554 PO (12:04)
[2022-06-14] MEDS ORDERED: ATOR40TA71 PO (12:04)
[2022-06-14] MEDS ORDERED: LOSA25TA2 PO (12:04)
[2022-06-14] MEDS ORDERED: ASPI81 PO (12:04)
[2022-06-14] MEDS ORDERED: CARV3 PO (12:04)
[2022-06-14 16:11] VITALS: BP 148/98
[2022-06-14 17:26] LABS: GLUCOMETER DEV NAME(LOC) 5S.1B; GLUCOSE,POINT OF CARE 263 MG/DL (70-110)
[2022-06-14 17:31] LABS: GLUCOMETER DEV NAME(LOC) 5S.2B; GLUCOSE,POINT OF CARE 265 MG/DL (70-110)
[2022-06-14 17:31] LABS: GLUCOMETER DEV NAME(LOC) 5S.2B; GLUCOSE,POINT OF CARE 466 MG/DL (70-110)
[2022-06-14] MEDS ORDERED: INSULIN REGULAR, HUMAN 100 UNITS/ML SQ ONE (20:00)
[2022-06-14 20:19] VITALS: BP 134/78
[2022-06-14] MEDS: INSULIN GLARGINE,HUM.REC.ANLOG 100 UNITS/ML SQ SCH (20:59)
[2022-06-14 21:46] LABS: GLUCOMETER DEV NAME(LOC) 5N.1C; GLUCOSE,POINT OF CARE 439 MG/DL (70-110)
[2022-06-15] MEDS: MethylPREDNISolone SOD SUCC 125 MG/2 ML VIAL IVP SCH ×3 (00:05→17:09)
[2022-06-15] MEDS: HEPARIN SODIUM,PORCINE 5,000 UNITS/ML VIAL SQ SCH ×3 (00:05→17:09)
[2022-06-15] MEDS: INSULIN LISPRO 100 UNITS/ML SQ PRN ×5 (00:06→19:49)
[2022-06-15 00:25] VITALS: BP 124/83
[2022-06-15 02:16] LABS: GLUCOMETER DEV NAME(LOC) 5N.1C; GLUCOSE,POINT OF CARE 173 MG/DL (70-110)
[2022-06-15 04:44] VITALS: BP 127/79
[2022-06-15 06:26] LABS: GLUCOMETER DEV NAME(LOC) 5S.2B; GLUCOSE,POINT OF CARE 173 MG/DL (70-110)
[2022-06-15 07:31] VITALS: BP 137/75
[2022-06-15] MEDS: BUDESONIDE 0.5 MG/2 ML NEB SOLUTION NEB SCH ×2 (07:39→15:22)
[2022-06-15] MEDS: LOSARTAN POTASSIUM 25 MG TABLET PO SCH (08:54)
[2022-06-15] MEDS: DOCUSATE SODIUM 100 MG CAPSULE PO SCH ×2 (08:54→19:51)
[2022-06-15] MEDS: CARVEDILOL 3.125 MG TABLET PO SCH ×2 (08:54→19:51)
[2022-06-15] MEDS: FUROSEMIDE 40 MG TABLET PO SCH (08:54)
[2022-06-15] MEDS: ATORVASTATIN CALCIUM 40 MG TABLET PO SCH (08:54)
[2022-06-15] MEDS: ASPIRIN 81 MG CHEWABLE TABLET PO SCH (08:54)
[2022-06-15] MEDS: INSULIN GLARGINE,HUM.REC.ANLOG 100 UNITS/ML SQ SCH (08:55)
[2022-06-15 11:32] VITALS: BP 143/84
[2022-06-15] MEDS: ISOSORB DINIT/HYDRALAZINE HCL 20-37.5 MG TABLET PO SCH ×3 (11:43→19:50)
[2022-06-15 15:26] VITALS: BP 127/80
[2022-06-15 19:47] VITALS: BP 132/64
[2022-06-15] MEDS: AmLODIPine BESYLATE 5 MG TABLET PO SCH (19:51)
[2022-06-15 20:16] LABS: GLUCOMETER DEV NAME(LOC) 5N.3; GLUCOSE,POINT OF CARE 291 MG/DL (70-110)
[2022-06-15 20:46] LABS: GLUCOMETER DEV NAME(LOC) 5S.2B; GLUCOSE,POINT OF CARE 193 MG/DL (70-110)
[2022-06-15 20:56] LABS: GLUCOMETER DEV NAME(LOC) 5N.1C; GLUCOSE,POINT OF CARE 390 MG/DL (70-110)
[2022-06-16] MEDS: BUDESONIDE 0.5 MG/2 ML NEB SOLUTION NEB SCH ×3 (00:11→15:08)
[2022-06-16 00:27] VITALS: BP 124/76
[2022-06-16] MEDS: HEPARIN SODIUM,PORCINE 5,000 UNITS/ML VIAL SQ SCH ×3 (00:49→15:59)
[2022-06-16] MEDS: MethylPREDNISolone SOD SUCC 40 MG/ML VIAL IVP SCH ×2 (00:49→08:00)
[2022-06-16 04:32] VITALS: BP 131/80
[2022-06-16 05:40] LABS: BASOPHILS % (AUTO) 0.1 % (0.0-2.0); EOSINOPHILS % (AUTO) 0 % (1.0-6.0); HEMATOCRIT 42.6 % (41-53); HEMOGLOBIN 13.3 g/dL (13.5-17.5); LYMPHOCYTES # (AUTO) 0.3 K/uL (1.0-4.8); MEAN CORPUSCULAR HEMOGLOBIN 21.3 pg (26.0-34.0); MEAN CORPUSCULAR HGB CONC 31.2 G/dL (31.0-37.0); MEAN CORPUSCULAR VOLUME 68 fL (80-100); MONOCYTES # (AUTO) 0.2 K/uL (0.1-1.0); MONOCYTES % (AUTO) 1.7 % (2.0-9.0); NEUTROPHILS # (AUTO) 13.4 K/uL (1.8-7.7); PLATELET COUNT (AUTO) 321 K/uL (150-450); RED BLOOD CELL COUNT(AUTO) 6.23 MIL/uL (4.50-5.90); RED CELL DISTRIBUTION WIDTH 17.2 % (11.5-14.5)
[2022-06-16 05:44] LABS: NEUTROPHILS % (AUTO) 96.2 % (40.0-70.0)
[2022-06-16 05:57] LABS: ALBUMIN 2.7 g/dL (3.4-5.0); BILIRUBIN,TOTAL 0.3 mg/dL (0.1-1.0); CALCIUM, TOTAL 8.3 mg/dL (8.8-10.5); CREATININE 1.83 mg/dL (0.60-1.30); MAGNESIUM 2.3 mg/dL (1.80-2.40); POTASSIUM 4.6 mmol/L (3.5-5.1); TOTAL PROTEIN, SERUM 6.2 g/dL (6.4-8.2)
[2022-06-16] MEDS: INSULIN LISPRO 100 UNITS/ML SQ PRN ×4 (06:20→20:15)
[2022-06-16 07:32] VITALS: BP 114/64
[2022-06-16 07:51] LABS: GLUCOMETER DEV NAME(LOC) 5S.2B; GLUCOSE,POINT OF CARE 285 MG/DL (70-110)
[2022-06-16] MEDS: CARVEDILOL 3.125 MG TABLET PO SCH ×2 (08:59→21:06)
[2022-06-16] MEDS: ATORVASTATIN CALCIUM 40 MG TABLET PO SCH (08:59)
[2022-06-16] MEDS: FUROSEMIDE 40 MG TABLET PO SCH (08:59)
[2022-06-16] MEDS: DOCUSATE SODIUM 100 MG CAPSULE PO SCH ×2 (08:59→21:04)
[2022-06-16] MEDS: PredniSONE 20 MG TABLET PO SCH (09:00)
[2022-06-16] MEDS: ASPIRIN 81 MG CHEWABLE TABLET PO SCH (09:02)
[2022-06-16] MEDS: INSULIN GLARGINE,HUM.REC.ANLOG 100 UNITS/ML SQ SCH (09:15)
[2022-06-16 11:32] VITALS: BP 145/87
[2022-06-16] MEDS: LOSARTAN POTASSIUM 25 MG TABLET PO SCH (12:29)
[2022-06-16 15:50] VITALS: BP 134/74
[2022-06-16] MEDS: ISOSORB DINIT/HYDRALAZINE HCL 20-37.5 MG TABLET PO SCH ×2 (15:59→21:05)
[2022-06-16 17:51] LABS: GLUCOMETER DEV NAME(LOC) 5N.1C; GLUCOSE,POINT OF CARE 358 MG/DL (70-110)
[2022-06-16 17:51] LABS: GLUCOMETER DEV NAME(LOC) 5S.2B; GLUCOSE,POINT OF CARE 309 MG/DL (70-110)
[2022-06-16 19:45] VITALS: BP 119/66
[2022-06-16 21:26] LABS: GLUCOMETER DEV NAME(LOC) 5S.2B; GLUCOSE,POINT OF CARE 166 MG/DL (70-110)
[2022-06-17] MEDS: HEPARIN SODIUM,PORCINE 5,000 UNITS/ML VIAL SQ SCH ×3 (00:03→08:44)
[2022-06-17 00:41] VITALS: BP 120/75
[2022-06-17 04:37] VITALS: BP 127/75
[2022-06-17] MEDS: INSULIN LISPRO 100 UNITS/ML SQ PRN ×2 (05:59→12:03)
[2022-06-17 06:47] LABS: BASOPHILS % (AUTO) 0.2 % (0.0-2.0); EOSINOPHILS % (AUTO) 0.5 % (1.0-6.0); HEMATOCRIT 44.9 % (41-53); HEMOGLOBIN 13.9 g/dL (13.5-17.5); LYMPHOCYTES # (AUTO) 1.1 K/uL (1.0-4.8); LYMPHOCYTES % (AUTO) 12.5 % (22.0-44.0); MEAN CORPUSCULAR HEMOGLOBIN 21.3 pg (26.0-34.0); MEAN CORPUSCULAR HGB CONC 30.9 G/dL (31.0-37.0); MEAN CORPUSCULAR VOLUME 69 fL (80-100); MONOCYTES # (AUTO) 0.7 K/uL (0.1-1.0); MONOCYTES % (AUTO) 7.8 % (2.0-9.0); NEUTROPHILS # (AUTO) 7.2 K/uL (1.8-7.7); PLATELET COUNT (AUTO) 317 K/uL (150-450); RED BLOOD CELL COUNT(AUTO) 6.52 MIL/uL (4.50-5.90); RED CELL DISTRIBUTION WIDTH 16.6 % (11.5-14.5)
[2022-06-17 07:17] LABS: ALBUMIN 2.8 g/dL (3.4-5.0); BILIRUBIN,TOTAL 0.2 mg/dL (0.1-1.0); CALCIUM, TOTAL 8.4 mg/dL (8.8-10.5); CREATININE 1.8 mg/dL (0.60-1.30); MAGNESIUM 2.3 mg/dL (1.80-2.40); POTASSIUM 4.2 mmol/L (3.5-5.1); TOTAL PROTEIN, SERUM 6.1 g/dL (6.4-8.2)
[2022-06-17 08:26] VITALS: BP 124/68
[2022-06-17] MEDS: ASPIRIN 81 MG CHEWABLE TABLET PO SCH (08:44)
[2022-06-17] MEDS: ISOSORB DINIT/HYDRALAZINE HCL 20-37.5 MG TABLET PO SCH (08:45)
[2022-06-17] MEDS: CARVEDILOL 3.125 MG TABLET PO SCH (08:45)
[2022-06-17] MEDS: DOCUSATE SODIUM 100 MG CAPSULE PO SCH (08:45)
[2022-06-17] MEDS: LOSARTAN POTASSIUM 25 MG TABLET PO SCH (08:46)
[2022-06-17] MEDS: PredniSONE 20 MG TABLET PO SCH (08:46)
[2022-06-17] MEDS: ATORVASTATIN CALCIUM 40 MG TABLET PO SCH (08:46)
[2022-06-17] MEDS: FUROSEMIDE 40 MG TABLET PO SCH (08:46)
[2022-06-17] MEDS: INSULIN GLARGINE,HUM.REC.ANLOG 100 UNITS/ML SQ SCH (08:48)
[2022-06-17] MEDS: BUDESONIDE 0.5 MG/2 ML NEB SOLUTION NEB SCH ×2 (08:51)
[2022-06-17] MEDS ORDERED: ISOS1TAB3 PO (11:34)
[2022-06-17] MEDS ORDERED: CARV6 PO (11:34)
[2022-06-17 11:45] VITALS: BP 108/57
[2022-06-17] MEDS ORDERED: LinaGLIPtin 5 MG TABLET PO SCH (12:00)
[2022-06-17 12:26] LABS: GLUCOMETER DEV NAME(LOC) 5N.1C; GLUCOSE,POINT OF CARE 360 MG/DL (70-110)
[2022-06-17 18:51] LABS: GLUCOMETER DEV NAME(LOC) 5S.1B; GLUCOSE,POINT OF CARE 185 MG/DL (70-110)
== END 2022-06-17 13:50 | disposition left against medical advice (07) | DRG 291 ==
LOC: EMS 18:29 → 5S 23:12
PROVIDERS: ADMIT Internal Medicine; ATTEND Internal Medicine
DX: I13.0 Hypertensive heart and chronic kidney disease with heart failure and stage 1 through stage 4 chronic kidney disease, or unspecified chronic kidney disease (principal); I50.43 Acute on chronic combined systolic (congestive) and diastolic (congestive) heart failure; J96.01 Acute respiratory failure with hypoxia; J44.1 Chronic obstructive pulmonary disease with (acute) exacerbation; N17.9 Acute kidney failure, unspecified; I25.10 Atherosclerotic heart disease of native coronary artery without angina pectoris; E11.22 Type 2 diabetes mellitus with diabetic chronic kidney disease; F15.10 Other stimulant abuse, uncomplicated; N18.30 Chronic kidney disease, stage 3 unspecified; F17.210 Nicotine dependence, cigarettes, uncomplicated; Z79.82 Long term (current) use of aspirin; Z82.49 Family history of ischemic heart disease and other diseases of the circulatory system; Z79.899 Other long term (current) drug therapy; Z95.5 Presence of coronary angioplasty implant and graft
CPT/HCPCS: 36600; 71045; 80048; 80053; 81001; 82805; 82962; 83605; 83690; 83735; 83880; 84484; 85025; 93005; 93306; 94640; 99285; G0480; J1644; J1815; J1940; J2920; J2930; J3535; Q9967; 36415-L1; 36415-TC; J7613

== ENCOUNTER 2022-07-14 21:16 | Inpatient (IN) | payer OTHER ==
[~2022-07-14] VITALS: Ht 165.1 cm; Wt 56.8 kg
[~2022-07-14 21:16] MED LIST changes: -ASPI-556 PO; +ASPI81 PO; +ATOR40TA71 PO; +CARV6 PO; -CARV6.2579 PO; -FURO20 PO; +FURO40 PO; +ISOS1TAB3 PO; +LOSA25TA2 PO
[2022-07-14] MEDS ORDERED: ASPIRIN 81 MG CHEWABLE TABLET PO ONE (22:15)
[2022-07-14 22:27] LABS: EOSINOPHILS % (AUTO) 7.7 % (1.0-6.0); HEMATOCRIT 39.9 % (41-53); HEMOGLOBIN 12.6 g/dL (13.5-17.5); LYMPHOCYTES # (AUTO) 1.3 K/uL (1.0-4.8); LYMPHOCYTES % (AUTO) 19.1 % (22.0-44.0); MEAN CORPUSCULAR HEMOGLOBIN 21.5 pg (26.0-34.0); MEAN CORPUSCULAR HGB CONC 31.5 G/dL (31.0-37.0); MEAN CORPUSCULAR VOLUME 68 fL (80-100); MONOCYTES # (AUTO) 0.7 K/uL (0.1-1.0); MONOCYTES % (AUTO) 9.9 % (2.0-9.0); NEUTROPHILS # (AUTO) 4.1 K/uL (1.8-7.7); NEUTROPHILS % (AUTO) 62.3 % (40.0-70.0); PLATELET COUNT (AUTO) 335 K/uL (150-450); RED BLOOD CELL COUNT(AUTO) 5.84 MIL/uL (4.50-5.90); RED CELL DISTRIBUTION WIDTH 17.3 % (11.5-14.5)
[2022-07-14] MEDS ORDERED: NITROGLYCERIN 0.4 MG SUBLINGUAL TABLET #25 SL ONE (22:30)
[2022-07-14 22:35] LABS: COVID AG,FIA SOURCE NASAL SWAB
[2022-07-14 22:51] LABS: CALCIUM, TOTAL 8.5 mg/dL (8.8-10.5); CREATININE 1.84 mg/dL (0.60-1.30); POTASSIUM 3.9 mmol/L (3.5-5.1)
[2022-07-14 22:53] LABS: INFLUENZA TYPE A NEGATIVE FOR TYPE A (NEGATIVE); INFLUENZA TYPE B NEGATIVE FOR TYPE B (NEGATIVE)
[2022-07-14 22:54] LABS: PROTHROMBIN TIME 10.2 SEC (9.4-11.6)
[2022-07-14 23:16] LABS: ALBUMIN 3.2 g/dL (3.4-5.0); BILIRUBIN,TOTAL 0.3 mg/dL (0.1-1.0); TOTAL PROTEIN, SERUM 6.7 g/dL (6.4-8.2)
[2022-07-14] MEDS ORDERED: ACETAMINOPHEN 325 MG TABLET PO PRN (23:30)
[2022-07-14] MEDS ORDERED: CefTRIAXone 1 GM/DEXTROSE 50 ML IV ONE (23:30)
[2022-07-14] MEDS ORDERED: *CLINICAL-CEFTRIAXONE DOSING CLINICAL ONE (23:30)
[2022-07-14] MEDS ORDERED: FUROSEMIDE 40 MG/4 ML VIAL IVP ONE (23:30)
[2022-07-14] MEDS ORDERED: ONDANSETRON HCL 4 MG/2 ML VIAL IVP PRN (23:30)
[2022-07-14] MEDS ORDERED: AZITHROMYCIN 500 MG/NS 250 ML IV ONE (23:30)
[2022-07-15] MEDS: HEPARIN SODIUM,PORCINE 5,000 UNITS/ML VIAL SQ SCH ×4 (00:08→23:51)
[2022-07-15 05:34] LABS: BASOPHILS % (AUTO) 1.3 % (0.0-2.0); EOSINOPHILS % (AUTO) 10.1 % (1.0-6.0); HEMATOCRIT 43.6 % (41-53); HEMOGLOBIN 13.7 g/dL (13.5-17.5); LYMPHOCYTES # (AUTO) 1.3 K/uL (1.0-4.8); LYMPHOCYTES % (AUTO) 23.6 % (22.0-44.0); MEAN CORPUSCULAR HEMOGLOBIN 21.6 pg (26.0-34.0); MEAN CORPUSCULAR HGB CONC 31.4 G/dL (31.0-37.0); MEAN CORPUSCULAR VOLUME 69 fL (80-100); MONOCYTES # (AUTO) 0.6 K/uL (0.1-1.0); MONOCYTES % (AUTO) 11.2 % (2.0-9.0); NEUTROPHILS # (AUTO) 2.9 K/uL (1.8-7.7); NEUTROPHILS % (AUTO) 53.8 % (40.0-70.0); PLATELET COUNT (AUTO) 330 K/uL (150-450); RED BLOOD CELL COUNT(AUTO) 6.34 MIL/uL (4.50-5.90); RED CELL DISTRIBUTION WIDTH 17.2 % (11.5-14.5)
[2022-07-15 05:57] LABS: CALCIUM, TOTAL 8.7 mg/dL (8.8-10.5); CREATININE 1.82 mg/dL (0.60-1.30); MAGNESIUM 1.9 mg/dL (1.80-2.40); POTASSIUM 3.9 mmol/L (3.5-5.1)
[2022-07-15 06:01] LABS: GLUCOSE,POINT OF CARE 142 MG/DL (70-110)
[2022-07-15 08:33] VITALS: BP 122/73
[2022-07-15] MEDS: ISOSORB DINIT/HYDRALAZINE HCL 20-37.5 MG TABLET PO SCH ×3 (09:15→23:51)
[2022-07-15] MEDS: ATORVASTATIN CALCIUM 40 MG TABLET PO SCH (09:15)
[2022-07-15] MEDS: DIVALPROEX SODIUM 500 MG DR TABLET PO SCH ×2 (09:16→23:51)
[2022-07-15] MEDS: LOSARTAN POTASSIUM 25 MG TABLET PO SCH (09:16)
[2022-07-15] MEDS: FUROSEMIDE 40 MG/4 ML VIAL IVP SCH ×2 (09:16→23:51)
[2022-07-15] MEDS: CARVEDILOL 6.25 MG TABLET PO SCH ×2 (09:16→23:51)
[2022-07-15] MEDS: ASPIRIN 81 MG CHEWABLE TABLET PO SCH (09:16)
[2022-07-15] MEDS ORDERED: DEXTROSE 50%-WATER 25 GM/50 ML SYRINGE IVP PRN (11:45)
[2022-07-15] MEDS ORDERED: DIVA-112 PO (11:47)
[2022-07-15] MEDS: INSULIN LISPRO 100 UNITS/ML SQ PRN (12:11)
[2022-07-15 16:45] VITALS: BP 105/52
[2022-07-15 20:40] VITALS: BP 131/95
[2022-07-15] MEDS: CefTRIAXone 1 GM/DEXTROSE 50 ML IV SCH (23:52)
[2022-07-15] MEDS ORDERED: SODIUM CHLORIDE 0.9% 250 ML IV ONE (23:59)
[2022-07-16 00:41] VITALS: BP 134/81
[2022-07-16 02:06] LABS: GLUCOMETER DEV NAME(LOC) 5S.1B; GLUCOSE,POINT OF CARE 151 MG/DL (70-110)
[2022-07-16 04:30] VITALS: BP 135/68
[2022-07-16 09:25] VITALS: BP 137/87
[2022-07-16] MEDS: FUROSEMIDE 40 MG/4 ML VIAL IVP SCH ×2 (09:25→20:02)
[2022-07-16] MEDS: DIVALPROEX SODIUM 500 MG DR TABLET PO SCH ×2 (09:25→20:02)
[2022-07-16] MEDS: ISOSORB DINIT/HYDRALAZINE HCL 20-37.5 MG TABLET PO SCH ×3 (09:25→20:02)
[2022-07-16] MEDS: LOSARTAN POTASSIUM 25 MG TABLET PO SCH (09:26)
[2022-07-16] MEDS: ASPIRIN 81 MG CHEWABLE TABLET PO SCH (09:26)
[2022-07-16] MEDS: CARVEDILOL 6.25 MG TABLET PO SCH ×2 (09:26→20:02)
[2022-07-16] MEDS: HEPARIN SODIUM,PORCINE 5,000 UNITS/ML VIAL SQ SCH ×3 (09:27→23:17)
[2022-07-16] MEDS: ATORVASTATIN CALCIUM 40 MG TABLET PO SCH (09:27)
[2022-07-16 12:01] VITALS: BP 135/74
[2022-07-16] MEDS: INSULIN LISPRO 100 UNITS/ML SQ PRN ×2 (12:14→20:12)
[2022-07-16 16:40] VITALS: BP 129/79
[2022-07-16 17:21] LABS: GLUCOMETER DEV NAME(LOC) 5S.1B; GLUCOSE,POINT OF CARE 240 MG/DL (70-110)
[2022-07-16 19:46] VITALS: BP 128/73
[2022-07-16 20:51] LABS: GLUCOMETER DEV NAME(LOC) 5S.1B; GLUCOSE,POINT OF CARE 272 MG/DL (70-110)
[2022-07-16 20:51] LABS: GLUCOMETER DEV NAME(LOC) 5S.1B; GLUCOSE,POINT OF CARE 115 MG/DL (70-110)
[2022-07-16] MEDS: CefTRIAXone 1 GM/DEXTROSE 50 ML IV SCH (23:18)
[2022-07-17 00:15] VITALS: BP 106/67
[2022-07-17 05:34] VITALS: BP 121/82
[2022-07-17 06:37] LABS: GLUCOMETER DEV NAME(LOC) 5S.1B; GLUCOSE,POINT OF CARE 156 MG/DL (70-110)
[2022-07-17 07:30] VITALS: BP 123/81
[2022-07-17] MEDS: ASPIRIN 81 MG CHEWABLE TABLET PO SCH (08:05)
[2022-07-17] MEDS: FUROSEMIDE 40 MG/4 ML VIAL IVP SCH (08:06)
[2022-07-17] MEDS: DIVALPROEX SODIUM 500 MG DR TABLET PO SCH (08:06)
[2022-07-17] MEDS: HEPARIN SODIUM,PORCINE 5,000 UNITS/ML VIAL SQ SCH (08:06)
[2022-07-17] MEDS: ATORVASTATIN CALCIUM 40 MG TABLET PO SCH (08:07)
[2022-07-17] MEDS: LOSARTAN POTASSIUM 25 MG TABLET PO SCH (08:08)
[2022-07-17] MEDS ORDERED: LinaGLIPtin 5 MG TABLET PO SCH (09:00)
[2022-07-17] MEDS: CARVEDILOL 6.25 MG TABLET PO SCH (09:00)
[2022-07-17] MEDS: INSULIN LISPRO 100 UNITS/ML SQ PRN (11:55)
[2022-07-17 12:15] VITALS: BP 127/84
[2022-07-17] MEDS ORDERED: AMOX1TAB16 PO (12:55)
[2022-07-17] MEDS ORDERED: CARV6 PO (12:55)
[2022-07-17] MEDS ORDERED: LINA5TAB PO ×2 (12:55)
[2022-07-17] MEDS ORDERED: DIVA-112 PO ×2 (12:55)
[2022-07-17] MEDS ORDERED: LOSA25TA2 PO (12:55)
[2022-07-17] MEDS ORDERED: ATOR40TA71 PO (12:55)
[2022-07-17] MEDS ORDERED: ASPI81 PO (12:55)
[2022-07-17] MEDS ORDERED: FURO40 PO (12:55)
[2022-07-17] MEDS ORDERED: ISOS1TAB3 PO (12:55)
[2022-07-17 13:06] LABS: GLUCOMETER DEV NAME(LOC) 5S.1B; GLUCOSE,POINT OF CARE 222 MG/DL (70-110)
[2022-07-17] MEDS: ISOSORB DINIT/HYDRALAZINE HCL 20-37.5 MG TABLET PO SCH (14:05)
== END 2022-07-17 14:35 | disposition home or self-care (01) | DRG 193 ==
LOC: EMS 21:17 → 5S 07-15 06:36
PROVIDERS: ADMIT Internal Medicine; ATTEND Internal Medicine
DX: J18.9 Pneumonia, unspecified organism (principal); I50.43 Acute on chronic combined systolic (congestive) and diastolic (congestive) heart failure; I13.0 Hypertensive heart and chronic kidney disease with heart failure and stage 1 through stage 4 chronic kidney disease, or unspecified chronic kidney disease; N18.4 Chronic kidney disease, stage 4 (severe); G93.40 Encephalopathy, unspecified; E11.22 Type 2 diabetes mellitus with diabetic chronic kidney disease; F17.210 Nicotine dependence, cigarettes, uncomplicated; I25.10 Atherosclerotic heart disease of native coronary artery without angina pectoris; J44.9 Chronic obstructive pulmonary disease, unspecified; N18.30 Chronic kidney disease, stage 3 unspecified; Z20.822 Contact with and (suspected) exposure to COVID-19; Z82.49 Family history of ischemic heart disease and other diseases of the circulatory system; Z91.14 Patient's other noncompliance with medication regimen; Z79.899 Other long term (current) drug therapy; Z79.82 Long term (current) use of aspirin
CPT/HCPCS: 71045; 80048; 80053; 82550; 82962; 83605; 83735; 83880; 84484; 85025; 85610; 85730; 87040; 87804; 93005; 99285; J0456; J0696; J1644; J1940; J7050; Q9967; 36415-L1; 36415-TC; U0003

== ENCOUNTER 2022-07-17 16:22 | Emergency (ER) | payer OTHER ==
[~2022-07-17] VITALS: Ht 170.2 cm; Wt 72.7 kg
[~2022-07-17 16:22] MED LIST changes: +AMOX1TAB16 PO; +DIVA-112 PO; -DIVA250T4 PO; -PRED-554 PO
[2022-07-17] MEDS ORDERED: SODIUM CHLORIDE 0.9% 1,000 ML IV ONE ×2 (16:45→18:15)
[2022-07-17] MEDS ORDERED: MORPHINE SULFATE 2 MG/ML SYRINGE IVP ONE (16:45)
[2022-07-17 17:22] LABS: BASOPHILS % (AUTO) 0.6 % (0.0-2.0); EOSINOPHILS % (AUTO) 5.7 % (1.0-6.0); HEMATOCRIT 48.6 % (41-53); HEMOGLOBIN 14.9 g/dL (13.5-17.5); LYMPHOCYTES # (AUTO) 0.8 K/uL (1.0-4.8); LYMPHOCYTES % (AUTO) 13.7 % (22.0-44.0); MEAN CORPUSCULAR HEMOGLOBIN 21.4 pg (26.0-34.0); MEAN CORPUSCULAR HGB CONC 30.7 G/dL (31.0-37.0); MEAN CORPUSCULAR VOLUME 70 fL (80-100); MONOCYTES # (AUTO) 0.6 K/uL (0.1-1.0); MONOCYTES % (AUTO) 9.7 % (2.0-9.0); NEUTROPHILS % (AUTO) 70.3 % (40.0-70.0); PLATELET COUNT (AUTO) 353 K/uL (150-450); RED BLOOD CELL COUNT(AUTO) 6.98 MIL/uL (4.50-5.90)
[2022-07-17 17:34] LABS: CALCIUM, TOTAL 9.2 mg/dL (8.8-10.5); CREATININE 2.48 mg/dL (0.60-1.30); POTASSIUM 4.5 mmol/L (3.5-5.1)
[2022-07-17 17:40] LABS: PLATELET MORPHOLOGY COMMENT LARGE PLTS PRESENT
[2022-07-17 17:41] LABS: ALBUMIN 3.1 g/dL (3.4-5.0); BILIRUBIN,TOTAL 0.2 mg/dL (0.1-1.0); TOTAL PROTEIN, SERUM 7.1 g/dL (6.4-8.2)
[2022-07-17 23:05] VITALS: BP 141/77
== END 2022-07-17 23:16 | disposition home or self-care (01) ==
LOC: EMS 16:22
DX: R10.84 Generalized abdominal pain (principal); I11.0 Hypertensive heart disease with heart failure; I50.9 Heart failure, unspecified; I25.10 Atherosclerotic heart disease of native coronary artery without angina pectoris; J44.9 Chronic obstructive pulmonary disease, unspecified; F17.210 Nicotine dependence, cigarettes, uncomplicated; F15.90 Other stimulant use, unspecified, uncomplicated; Z87.448 Personal history of other diseases of urinary system; Z98.890 Other specified postprocedural states
CPT/HCPCS: 99285; 74176; 96374; 71045; 96361; 80053; 81002; 83690; 84484; 85025; 36415; 93005; J2270; J7030

== ENCOUNTER 2022-08-08 10:30 | Emergency (ER) | payer OTHER ==
[~2022-08-08] VITALS: Ht 165.1 cm; Wt 65.9 kg
[2022-08-08 11:06] LABS: BASOPHILS % (AUTO) 2.1 % (0.0-2.0); EOSINOPHILS % (AUTO) 4.6 % (1.0-6.0); HEMATOCRIT 42.7 % (41-53); LYMPHOCYTES # (AUTO) 0.8 K/uL (1.0-4.8); LYMPHOCYTES % (AUTO) 15.2 % (22.0-44.0); MEAN CORPUSCULAR HEMOGLOBIN 21.1 pg (26.0-34.0); MEAN CORPUSCULAR HGB CONC 30.4 G/dL (31.0-37.0); MEAN CORPUSCULAR VOLUME 70 fL (80-100); MONOCYTES # (AUTO) 0.4 K/uL (0.1-1.0); NEUTROPHILS # (AUTO) 3.8 K/uL (1.8-7.7); NEUTROPHILS % (AUTO) 70.1 % (40.0-70.0); PLATELET COUNT (AUTO) 237 K/uL (150-450); RED BLOOD CELL COUNT(AUTO) 6.15 MIL/uL (4.50-5.90); RED CELL DISTRIBUTION WIDTH 16.9 % (11.5-14.5)
[2022-08-08 11:16] LABS: CALCIUM, TOTAL 8.7 mg/dL (8.8-10.5); CREATININE 2.21 mg/dL (0.60-1.30); POTASSIUM 4.9 mmol/L (3.5-5.1)
[2022-08-08 11:19] LABS: PROTHROMBIN TIME 10.8 SEC (9.4-11.6)
[2022-08-08 11:41] LABS: ALBUMIN 3.1 g/dL (3.4-5.0); BILIRUBIN,TOTAL 0.3 mg/dL (0.1-1.0); TOTAL PROTEIN, SERUM 6.6 g/dL (6.4-8.2)
[2022-08-08 13:36] LABS: APPEARANCE,URINE CLEAR (CLEAR); BILIRUBIN,URINE NEGATIVE (NEGATIVE); GLUCOSE, URINE (UA) >=1000 mg/dL (NEGATIVE); KETONES,URINE NEGATIVE (NEGATIVE); LEUKOCYTE ESTERASE ,URINE NEGATIVE (NEGATIVE); NITRATE,URINE NEGATIVE (NEGATIVE); OCCULT BLOOD,URINE NEGATIVE (NEGATIVE); PH,URINE 5.5 (5.0-8.0); PROTEIN,URINE 30-70 mg/dL (NEGATIVE); SPECIFIC GRAVITIY, URINE 1.018 (1.003-1.030); UROBILINOGEN,URINE <=1.0 mg/dL (<=1.0)
[2022-08-08 13:39] LABS: BACTERIA,URINE None Seen /HPF (None Seen); RBC,URINE None Seen /HPF (0-2); WBC,URINE None Seen /HPF (0-5)
[2022-08-08 14:19] VITALS: BP 140/71
[2022-08-08 15:31] LABS: GLUCOSE,POINT OF CARE 303 MG/DL (70-110)
== END 2022-08-08 14:20 | disposition home or self-care (01) ==
LOC: EMS 10:48
DX: R10.10 Upper abdominal pain, unspecified (principal); E44.0 Moderate protein-calorie malnutrition; E11.22 Type 2 diabetes mellitus with diabetic chronic kidney disease; E11.65 Type 2 diabetes mellitus with hyperglycemia; F15.10 Other stimulant abuse, uncomplicated; F17.210 Nicotine dependence, cigarettes, uncomplicated; J44.9 Chronic obstructive pulmonary disease, unspecified; I50.9 Heart failure, unspecified; N18.9 Chronic kidney disease, unspecified; Z91.119 Patient's noncompliance with dietary regimen due to unspecified reason
CPT/HCPCS: 71045; 80053; 81001; 82550; 82962; 83880; 84484; 85025; 85610; 85730; 93005; 99285; 36415-L1; 36415-TC

== ENCOUNTER 2023-02-22 17:58 | Emergency (ER) | payer OTHER ==
[~2023-02-22] VITALS: Ht 165.1 cm; Wt 68.2 kg
[~2023-02-22 17:58] MED LIST changes: -AMOX1TAB16 PO; +ASPI-1444 PO; -ASPI81 PO; -ISOS1TAB3 PO; -LINA5TAB PO
[2023-02-22 18:49] LABS: BASOPHILS % (AUTO) 0.8 % (0.0-2.0); EOSINOPHILS % (AUTO) 5.2 % (1.0-6.0); HEMATOCRIT 47.1 % (41-53); HEMOGLOBIN 14.7 g/dL (13.5-17.5); LYMPHOCYTES # (AUTO) 0.9 K/uL (1.0-4.8); LYMPHOCYTES % (AUTO) 9.2 % (22.0-44.0); MEAN CORPUSCULAR HEMOGLOBIN 20.9 pg (26.0-34.0); MEAN CORPUSCULAR HGB CONC 31.1 G/dL (31.0-37.0); MEAN CORPUSCULAR VOLUME 67 fL (80-100); MONOCYTES # (AUTO) 0.9 K/uL (0.1-1.0); MONOCYTES % (AUTO) 9.4 % (2.0-9.0); NEUTROPHILS # (AUTO) 7.4 K/uL (1.8-7.7); NEUTROPHILS % (AUTO) 75.4 % (40.0-70.0); PLATELET COUNT (AUTO) 305 K/uL (150-450); RED BLOOD CELL COUNT(AUTO) 7.02 MIL/uL (4.50-5.90); RED CELL DISTRIBUTION WIDTH 16.6 % (11.5-14.5)
[2023-02-22 19:00] LABS: CREATININE 1.47 mg/dL (0.60-1.30); POTASSIUM 4.1 mmol/L (3.5-5.1)
[2023-02-22 19:06] LABS: ALBUMIN 3.2 g/dL (3.4-5.0); TOTAL PROTEIN, SERUM 7.6 g/dL (6.4-8.2)
[2023-02-22 21:11] VITALS: BP 146/100
== END 2023-02-22 21:17 | disposition home or self-care (01) ==
LOC: EMS 18:00
DX: J44.9 Chronic obstructive pulmonary disease, unspecified (principal); N18.9 Chronic kidney disease, unspecified; E11.9 Type 2 diabetes mellitus without complications; E78.00 Pure hypercholesterolemia, unspecified; I11.0 Hypertensive heart disease with heart failure; I50.9 Heart failure, unspecified; F17.210 Nicotine dependence, cigarettes, uncomplicated; F15.10 Other stimulant abuse, uncomplicated
CPT/HCPCS: 71045; 80053; 83880; 84484; 85025; 93005; 99285; 36415-L1; 36415-TC

== ENCOUNTER 2023-05-18 16:21 | Emergency (ER) | payer OTHER ==
[~2023-05-18] VITALS: Ht 165.1 cm; Wt 68.2 kg
[2023-05-18 17:11] VITALS: BP 139/84; PULSE 86; RESP 16; TEMP 98.3
[2023-05-18 19:05] LABS: BASOPHILS % (AUTO) 1.7 % (0.0-2.0); EOSINOPHILS % (AUTO) 13.6 % (1.0-6.0); HEMOGLOBIN 13.8 g/dL (13.5-17.5); LYMPHOCYTES # (AUTO) 0.8 K/uL (1.0-4.8); LYMPHOCYTES % (AUTO) 15.9 % (22.0-44.0); MEAN CORPUSCULAR HEMOGLOBIN 21.2 pg (26.0-34.0); MEAN CORPUSCULAR HGB CONC 31.4 G/dL (31.0-37.0); MEAN CORPUSCULAR VOLUME 68 fL (80-100); MONOCYTES # (AUTO) 0.5 K/uL (0.1-1.0); MONOCYTES % (AUTO) 10.5 % (2.0-9.0); NEUTROPHILS % (AUTO) 58.3 % (40.0-70.0); PLATELET COUNT (AUTO) 284 K/uL (150-450); RED BLOOD CELL COUNT(AUTO) 6.52 MIL/uL (4.50-5.90)
[2023-05-18 19:14] LABS: CALCIUM, TOTAL 8.3 mg/dL (8.8-10.5); CREATININE 2.26 mg/dL (0.60-1.30); POTASSIUM 4.2 mmol/L (3.5-5.1)
[2023-05-18 19:17] LABS: ALBUMIN 3.2 g/dL (3.4-5.0); BILIRUBIN,TOTAL 0.2 mg/dL (0.1-1.0); TOTAL PROTEIN, SERUM 6.8 g/dL (6.4-8.2)
[2023-05-18 19:31] LABS: PLATELET MORPHOLOGY COMMENT LARGE PLTS PRESENT
[2023-05-18] MEDS ORDERED: SELE120S2 TP (20:08)
[2023-05-18] MEDS ORDERED: CLOT15CR29 TP (20:08)
== END 2023-05-18 20:36 | disposition home or self-care (01) ==
LOC: EMS 16:24
DX: R25.2 Cramp and spasm (principal); J44.9 Chronic obstructive pulmonary disease, unspecified; E78.00 Pure hypercholesterolemia, unspecified; I25.10 Atherosclerotic heart disease of native coronary artery without angina pectoris; I11.0 Hypertensive heart disease with heart failure; F17.210 Nicotine dependence, cigarettes, uncomplicated; F15.90 Other stimulant use, unspecified, uncomplicated; Z98.890 Other specified postprocedural states
CPT/HCPCS: 80053; 85025; 93005; 99284

== ENCOUNTER 2023-06-08 13:58 | Emergency (ER) | payer OTHER ==
[~2023-06-08] VITALS: Ht 165.1 cm; Wt 71.8 kg
[~2023-06-08 13:58] MED LIST changes: +CLOT15CR29 TP; +LOSA-417 PO; -LOSA25TA2 PO; +SELE120S2 TP
[2023-06-08 14:05] VITALS: TEMP 98.1
[2023-06-08] MEDS ORDERED: CARV6.2534 PO ×2 (14:05→20:43)
[2023-06-08 14:57] LABS: BASOPHILS % (AUTO) 1.2 % (0.0-2.0); EOSINOPHILS % (AUTO) 7.5 % (1.0-6.0); HEMATOCRIT 44.1 % (41-53); HEMOGLOBIN 13.8 g/dL (13.5-17.5); LYMPHOCYTES # (AUTO) 0.8 K/uL (1.0-4.8); LYMPHOCYTES % (AUTO) 10.1 % (22.0-44.0); MEAN CORPUSCULAR HEMOGLOBIN 21.3 pg (26.0-34.0); MEAN CORPUSCULAR HGB CONC 31.3 G/dL (31.0-37.0); MEAN CORPUSCULAR VOLUME 68 fL (80-100); MONOCYTES # (AUTO) 0.7 K/uL (0.1-1.0); NEUTROPHILS # (AUTO) 5.7 K/uL (1.8-7.7); NEUTROPHILS % (AUTO) 72.2 % (40.0-70.0); PLATELET COUNT (AUTO) 357 K/uL (150-450); RED BLOOD CELL COUNT(AUTO) 6.49 MIL/uL (4.50-5.90); RED CELL DISTRIBUTION WIDTH 17.4 % (11.5-14.5); WHITE BLOOD COUNT (AUTO) 7.9 K/uL (4.5-11.0)
[2023-06-08 15:10] LABS: CREATININE 2.32 mg/dL (0.60-1.30); POTASSIUM 5.3 mmol/L (3.5-5.1)
[2023-06-08 15:16] LABS: PROTHROMBIN TIME 10.3 SEC (9.4-11.6); TROPONIN I-HIGH SENSITIVITY 53 ng/L (<76)
[2023-06-08 15:34] LABS: ALBUMIN 3.3 g/dL (3.4-5.0); BILIRUBIN,TOTAL 0.5 mg/dL (0.1-1.0)
[2023-06-08 15:51] LABS: PLATELET MORPHOLOGY COMMENT LARGE PLTS PRESENT
[2023-06-08 16:10] LABS: APPEARANCE,URINE CLEAR (CLEAR); BILIRUBIN,URINE NEGATIVE (NEGATIVE); COLOR,URINE COLORLESS (YELLOW); GLUCOSE, URINE (UA) 70-100 mg/dL (NEGATIVE); KETONES,URINE NEGATIVE (NEGATIVE); LEUKOCYTE ESTERASE ,URINE NEGATIVE (NEGATIVE); NITRATE,URINE NEGATIVE (NEGATIVE); OCCULT BLOOD,URINE NEGATIVE (NEGATIVE); PROTEIN,URINE NEGATIVE (NEGATIVE); SPECIFIC GRAVITIY, URINE 1.007 (1.003-1.030); UROBILINOGEN,URINE <=1.0 mg/dL (<=1.0)
[2023-06-08 16:27] LABS: BACTERIA,URINE None Seen /HPF (None Seen); RBC,URINE None Seen /HPF (0-2); WBC,URINE None Seen /HPF (0-5)
[2023-06-08] MEDS ORDERED: FUROSEMIDE 40 MG/4 ML VIAL IVP ONE (18:30)
[2023-06-08] MEDS ORDERED: SODIUM ZIRCONIUM CYCLOSILICATE 5 GM POWDER PACKET PO ONE (20:45)
[2023-06-08] MEDS ORDERED: FURO-151 PO (20:45)
[2023-06-08] MEDS ORDERED: LOSA-381 PO (20:45)
[2023-06-08] MEDS ORDERED: PERM60CR19 TP (21:02)
[2023-06-08 21:05] VITALS: BP 141/88; PULSE 90; RESP 15
[2023-06-08 21:09] LABS: TROPONIN I-HIGH SENSITIVITY 53 ng/L (<76)
== END 2023-06-08 22:21 | disposition home or self-care (01) ==
LOC: EMS 13:58
DX: B86 Scabies (principal); I25.10 Atherosclerotic heart disease of native coronary artery without angina pectoris; I11.0 Hypertensive heart disease with heart failure; I50.9 Heart failure, unspecified; E87.5 Hyperkalemia; J44.9 Chronic obstructive pulmonary disease, unspecified; E78.00 Pure hypercholesterolemia, unspecified; F17.210 Nicotine dependence, cigarettes, uncomplicated; F15.90 Other stimulant use, unspecified, uncomplicated; Z76.0 Encounter for issue of repeat prescription; Z98.890 Other specified postprocedural states
CPT/HCPCS: 99285; 96374; 71045; 80053; 81001; 82550; 82962; 83880; 84484; 85025; 85610; 85730; 36415; 93005; J1940; Q9967; 81003

== ENCOUNTER 2023-08-03 02:50 | Inpatient (IN) | payer OTHER ==
[~2023-08-03] VITALS: Ht 154.9 cm; Wt 62.8 kg
[~2023-08-03 02:50] MED LIST changes: -ASPI-1444 PO; -ATOR40TA71 PO; -CARV6 PO; +CARV6.2534 PO; -CLOT15CR29 TP; -DIVA-112 PO; +FURO-151 PO; -FURO40 PO; +LOSA-381 PO; -LOSA-417 PO; +PERM60CR19 TP; -SELE120S2 TP
[2023-08-03] MEDS ORDERED: MethylPREDNISolone SOD SUCC 125 MG/2 ML VIAL IVP ONE (03:00)
[2023-08-03 03:57] LABS: CALCIUM, TOTAL 8.7 mg/dL (8.8-10.5); CREATININE 2.04 mg/dL (0.60-1.30); POTASSIUM 4.8 mmol/L (3.5-5.1)
[2023-08-03 03:57] LABS: BASOPHILS % (AUTO) 1.1 % (0.0-2.0); EOSINOPHILS % (AUTO) 3.4 % (1.0-6.0); HEMATOCRIT 41.6 % (41-53); HEMOGLOBIN 13.2 g/dL (13.5-17.5); LYMPHOCYTES # (AUTO) 0.9 K/uL (1.0-4.8); LYMPHOCYTES % (AUTO) 10.4 % (22.0-44.0); MEAN CORPUSCULAR HEMOGLOBIN 21.4 pg (26.0-34.0); MEAN CORPUSCULAR HGB CONC 31.6 G/dL (31.0-37.0); MEAN CORPUSCULAR VOLUME 68 fL (80-100); MONOCYTES # (AUTO) 1.2 K/uL (0.1-1.0); MONOCYTES % (AUTO) 13.6 % (2.0-9.0); NEUTROPHILS # (AUTO) 6.4 K/uL (1.8-7.7); NEUTROPHILS % (AUTO) 71.5 % (40.0-70.0); PLATELET COUNT (AUTO) 230 K/uL (150-450); RED BLOOD CELL COUNT(AUTO) 6.16 MIL/uL (4.50-5.90); RED CELL DISTRIBUTION WIDTH 17.1 % (11.5-14.5); WHITE BLOOD COUNT (AUTO) 8.9 K/uL (4.5-11.0)
[2023-08-03] MEDS ORDERED: FUROSEMIDE 40 MG/4 ML VIAL IVP ONE (04:00)
[2023-08-03 04:04] LABS: PROTHROMBIN TIME 10.4 SEC (9.4-11.6)
[2023-08-03 04:08] LABS: TROPONIN I-HIGH SENSITIVITY 56 ng/L (<76)
[2023-08-03 04:21] LABS: ALBUMIN 2.8 g/dL (3.4-5.0); BILIRUBIN,TOTAL 0.5 mg/dL (0.1-1.0); TOTAL PROTEIN, SERUM 8.2 g/dL (6.4-8.2)
[2023-08-03 04:27] LABS: COVID AG,FIA SOURCE NASAL SWAB
[2023-08-03 04:37] LABS: INFLUENZA TYPE A NEGATIVE FOR TYPE A (NEGATIVE); INFLUENZA TYPE B NEGATIVE FOR TYPE B (NEGATIVE); SARS-COV2 (COVID) ANTIGEN,FIA Negative (Negative)
[2023-08-03 04:52] LABS: APPEARANCE,URINE CLEAR (CLEAR); BILIRUBIN,URINE NEGATIVE (NEGATIVE); COLOR,URINE LIGHT YELLOW (YELLOW); GLUCOSE, URINE (UA) 150-200 mg/dL (NEGATIVE); KETONES,URINE NEGATIVE (NEGATIVE); LEUKOCYTE ESTERASE ,URINE NEGATIVE (NEGATIVE); NITRATE,URINE NEGATIVE (NEGATIVE); OCCULT BLOOD,URINE NEGATIVE (NEGATIVE); PROTEIN,URINE 30-70 mg/dL (NEGATIVE); SPECIFIC GRAVITIY, URINE 1.012 (1.003-1.030); UROBILINOGEN,URINE <=1.0 mg/dL (<=1.0)
[2023-08-03] MEDS ORDERED: NITROGLYCERIN 2% (1 GM=INCH) OINTMENT PACKET TP ONE (05:00)
[2023-08-03] MEDS ORDERED: 0.9% SODIUM CHLORIDE 10 ML SYRINGE IVP PRN (05:00)
[2023-08-03] MEDS ORDERED: ONDANSETRON HCL 4 MG/2 ML VIAL IVP PRN ×2 (05:00→11:30)
[2023-08-03] MEDS ORDERED: ACETAMINOPHEN 325 MG TABLET PO PRN ×2 (05:00→11:30)
[2023-08-03 05:05] LABS: RBC MORPHOLOGY COMMENT ABNORMAL RBC MORPH
[2023-08-03 05:11] LABS: BACTERIA,URINE None Seen /HPF (None Seen); RBC,URINE None Seen /HPF (0-2); SQUAMOUS EPITHELIAL CELL,UR Few /LPF (None Seen); WBC,URINE None Seen /HPF (0-5)
[2023-08-03] MEDS ORDERED: ALBUTEROL SULFATE 2.5 MG/0.5 ML NEB SOLUTION NEB ONE (05:20)
[2023-08-03] MEDS ORDERED: 0.9% SODIUM CHLORIDE 5 ML NEB SOLUTION NEB ONE (05:34)
[2023-08-03 05:43] VITALS: PULSE 103; RESP 22; O2SAT 96
[2023-08-03 05:44] VITALS: PULSE 103; RESP 23; O2SAT 96
[2023-08-03 06:03] LABS: TROPONIN I-HIGH SENSITIVITY 73 ng/L (<76)
[2023-08-03] MEDS: IPRATROPIUM BROMIDE 0.5 MG/2.5 ML NEB SOLUTION NEB SCH ×3 (06:05→13:51)
[2023-08-03] MEDS: ALBUTEROL SULFATE 2.5 MG/0.5 ML NEB SOLUTION NEB SCH ×3 (06:05→13:51)
[2023-08-03 10:28] VITALS: BP 145/87; PULSE 96; RESP 18; TEMP 98
[2023-08-03 11:00] VITALS: BP 132/86; PULSE 90; RESP 18; TEMP 98
[2023-08-03] MEDS ORDERED: MORPHINE SULFATE 2 MG/ML SYRINGE IVP PRN (11:30)
[2023-08-03] MEDS ORDERED: HYDROCODONE/ACETAMINOPHEN 5-325 MG TABLET PO PRN (11:30)
[2023-08-03] MEDS ORDERED: MAGNESIUM HYDROXIDE SUSPENSION 30 ML UDCUP PO PRN (11:30)
[2023-08-03] MEDS ORDERED: ZOLPIDEM TARTRATE 5 MG TABLET PO PRN (11:30)
[2023-08-03] MEDS ORDERED: DEXTROSE 50%-WATER 25 GM/50 ML SYRINGE IVP PRN (11:30)
[2023-08-03] MEDS ORDERED: BISACODYL 10 MG RECTAL RECTAL SUPPOSITORY PR PRN (11:30)
[2023-08-03] MEDS ORDERED: INSULIN LISPRO 100 UNITS/ML SQ PRN (11:30)
[2023-08-03] MEDS: INSULIN LISPRO 100 UNITS/ML SQ PRN ×3 (12:11→20:46)
[2023-08-03 12:15] LABS: TROPONIN I-HIGH SENSITIVITY 39 ng/L (<76)
[2023-08-03] MEDS ORDERED: INFLUENZA VIRUS VACCINE QVS 2023-24 (6MO+)/PF 60 MCG/0.5 ML SYRINGE IM. ONE (12:30)
[2023-08-03 12:51] LABS: GLUCOMETER DEV NAME(LOC) 5S.2C; GLUCOSE,POINT OF CARE 573 MG/DL (70-110)
[2023-08-03] MEDS: FLUTICASONE/VILANTEROL 200-25 MCG/INH INHALER [14] IH SCH (13:44)
[2023-08-03 15:13] VITALS: BP 114/80; PULSE 94; RESP 18; TEMP 98
[2023-08-03] MEDS: HEPARIN SODIUM,PORCINE 5,000 UNITS/ML VIAL SQ SCH (15:23)
[2023-08-03] MEDS: MethylPREDNISolone SOD SUCC 40 MG/ML VIAL IVP SCH (15:24)
[2023-08-03 18:07] LABS: GLUCOMETER DEV NAME(LOC) 5S.2C; GLUCOSE,POINT OF CARE 413 MG/DL (70-110)
[2023-08-03 18:07] LABS: GLUCOMETER DEV NAME(LOC) 5S.2C; GLUCOSE,POINT OF CARE 254 MG/DL (70-110)
[2023-08-03 18:17] LABS: TROPONIN I-HIGH SENSITIVITY 42 ng/L (<76)
[2023-08-03 20:00] VITALS: BP 123/74; PULSE 90; RESP 18; TEMP 97.9
[2023-08-03] MEDS: DOCUSATE SODIUM 100 MG CAPSULE PO SCH (20:38)
[2023-08-03] MEDS: CARVEDILOL 6.25 MG TABLET PO SCH (20:38)
[2023-08-03] MEDS: ATORVASTATIN CALCIUM 10 MG TABLET PO SCH (20:38)
[2023-08-03] MEDS: INSULIN GLARGINE,HUM.REC.ANLOG 100 UNITS/ML SQ SCH (20:42)
[2023-08-04] VITALS: BP 113/77; PULSE 84; RESP 18; TEMP 98.1
[2023-08-04] MEDS: HEPARIN SODIUM,PORCINE 5,000 UNITS/ML VIAL SQ SCH ×3 (00:02→17:36)
[2023-08-04] MEDS: MethylPREDNISolone SOD SUCC 40 MG/ML VIAL IVP SCH ×3 (00:02→17:35)
[2023-08-04 04:00] VITALS: BP 122/76; PULSE 93; RESP 17; TEMP 97.7
[2023-08-04 05:32] LABS: GLUCOMETER DEV NAME(LOC) 5N.1C; GLUCOSE,POINT OF CARE 205 MG/DL (70-110)
[2023-08-04 05:56] LABS: GLUCOMETER DEV NAME(LOC) 5S.2C; GLUCOSE,POINT OF CARE 244 MG/DL (70-110)
[2023-08-04] MEDS: INSULIN LISPRO 100 UNITS/ML SQ PRN ×4 (06:14→21:23)
[2023-08-04 06:58] LABS: BASOPHILS % (AUTO) 0.1 % (0.0-2.0); EOSINOPHILS % (AUTO) 0 % (1.0-6.0); HEMATOCRIT 38.4 % (41-53); HEMOGLOBIN 12.5 g/dL (13.5-17.5); LYMPHOCYTES # (AUTO) 0.5 K/uL (1.0-4.8); LYMPHOCYTES % (AUTO) 5.1 % (22.0-44.0); MEAN CORPUSCULAR HEMOGLOBIN 21.8 pg (26.0-34.0); MEAN CORPUSCULAR HGB CONC 32.6 G/dL (31.0-37.0); MEAN CORPUSCULAR VOLUME 67 fL (80-100); MONOCYTES # (AUTO) 0.2 K/uL (0.1-1.0); NEUTROPHILS # (AUTO) 8.4 K/uL (1.8-7.7); PLATELET COUNT (AUTO) 271 K/uL (150-450); RED BLOOD CELL COUNT(AUTO) 5.72 MIL/uL (4.50-5.90); RED CELL DISTRIBUTION WIDTH 16.1 % (11.5-14.5); WHITE BLOOD COUNT (AUTO) 9.1 K/uL (4.5-11.0)
[2023-08-04 07:08] VITALS: BP 115/61; PULSE 86; RESP 18; TEMP 98.2
[2023-08-04 07:13] LABS: NEUTROPHILS % (AUTO) 92.8 % (40.0-70.0)
[2023-08-04 07:14] LABS: RBC MORPHOLOGY COMMENT ABNORMAL RBC MORPH
[2023-08-04 07:37] LABS: CALCIUM, TOTAL 8.2 mg/dL (8.8-10.5); CHOL/HDL RATIO 2.9 (4.2-7.3); CREATININE 1.93 mg/dL (0.60-1.30); POTASSIUM 4.9 mmol/L (3.5-5.1)
[2023-08-04] MEDS: PANTOPRAZOLE SODIUM 40 MG DR TABLET PO SCH (08:02)
[2023-08-04] MEDS: DOCUSATE SODIUM 100 MG CAPSULE PO SCH ×2 (08:02→21:15)
[2023-08-04] MEDS: FUROSEMIDE 40 MG/4 ML VIAL IVP SCH (08:02)
[2023-08-04] MEDS: CARVEDILOL 6.25 MG TABLET PO SCH ×2 (08:02→21:15)
[2023-08-04] MEDS: LOSARTAN POTASSIUM 25 MG TABLET PO SCH (08:03)
[2023-08-04] MEDS: FLUTICASONE/VILANTEROL 200-25 MCG/INH INHALER [14] IH SCH (08:18)
[2023-08-04 11:38] VITALS: BP 119/69; PULSE 90; RESP 19; TEMP 98
[2023-08-04 13:21] LABS: GLUCOMETER DEV NAME(LOC) 5N.1C; GLUCOSE,POINT OF CARE 233 MG/DL (70-110)
[2023-08-04 16:28] VITALS: BP 116/58; PULSE 79; RESP 19; TEMP 98.2
[2023-08-04 19:07] LABS: GLUCOMETER DEV NAME(LOC) 6N.2B; GLUCOSE,POINT OF CARE 303 MG/DL (70-110)
[2023-08-04 20:35] VITALS: BP 108/57; PULSE 69; RESP 18; TEMP 97.7
[2023-08-04] MEDS: ATORVASTATIN CALCIUM 10 MG TABLET PO SCH (21:15)
[2023-08-04] MEDS: INSULIN GLARGINE,HUM.REC.ANLOG 100 UNITS/ML SQ SCH (21:20)
[2023-08-05] MEDS: HEPARIN SODIUM,PORCINE 5,000 UNITS/ML VIAL SQ SCH ×4 (00:39→23:54)
[2023-08-05] MEDS: MethylPREDNISolone SOD SUCC 40 MG/ML VIAL IVP SCH ×3 (00:39→09:12)
[2023-08-05 02:59] VITALS: O2SAT 98
[2023-08-05 04:36] VITALS: BP 101/69; PULSE 69; RESP 18; TEMP 97.6
[2023-08-05] MEDS: INSULIN LISPRO 100 UNITS/ML SQ PRN ×4 (05:58→21:09)
[2023-08-05] MEDS ORDERED: INSULIN LISPRO 100 UNITS/ML SQ ONE (06:00)
[2023-08-05 06:18] LABS: GLUCOMETER DEV NAME(LOC) 6N.2B; GLUCOSE,POINT OF CARE 412 MG/DL (70-110)
[2023-08-05 06:26] LABS: BASOPHILS % (AUTO) 0.1 % (0.0-2.0); EOSINOPHILS % (AUTO) 0 % (1.0-6.0); HEMATOCRIT 41.8 % (41-53); HEMOGLOBIN 13.2 g/dL (13.5-17.5); LYMPHOCYTES # (AUTO) 0.3 K/uL (1.0-4.8); LYMPHOCYTES % (AUTO) 2.3 % (22.0-44.0); MEAN CORPUSCULAR HEMOGLOBIN 21.2 pg (26.0-34.0); MEAN CORPUSCULAR HGB CONC 31.6 G/dL (31.0-37.0); MEAN CORPUSCULAR VOLUME 67 fL (80-100); MONOCYTES # (AUTO) 0.3 K/uL (0.1-1.0); MONOCYTES % (AUTO) 2.3 % (2.0-9.0); NEUTROPHILS # (AUTO) 12.5 K/uL (1.8-7.7); PLATELET COUNT (AUTO) 336 K/uL (150-450); RED BLOOD CELL COUNT(AUTO) 6.24 MIL/uL (4.50-5.90); RED CELL DISTRIBUTION WIDTH 16.5 % (11.5-14.5); WHITE BLOOD COUNT (AUTO) 13.2 K/uL (4.5-11.0)
[2023-08-05 06:51] LABS: CALCIUM, TOTAL 8.7 mg/dL (8.8-10.5); CREATININE 2.27 mg/dL (0.60-1.30); POTASSIUM 4.9 mmol/L (3.5-5.1)
[2023-08-05 06:52] LABS: NEUTROPHILS % (AUTO) 95.3 % (40.0-70.0)
[2023-08-05] MEDS: FUROSEMIDE 40 MG/4 ML VIAL IVP SCH ×2 (09:00→09:12)
[2023-08-05] MEDS: FLUTICASONE/VILANTEROL 200-25 MCG/INH INHALER [14] IH SCH (09:00)
[2023-08-05] MEDS: PANTOPRAZOLE SODIUM 40 MG DR TABLET PO SCH (09:12)
[2023-08-05] MEDS: DOCUSATE SODIUM 100 MG CAPSULE PO SCH ×2 (09:12→21:05)
[2023-08-05] MEDS: CARVEDILOL 6.25 MG TABLET PO SCH ×2 (09:12→21:05)
[2023-08-05] MEDS: LOSARTAN POTASSIUM 25 MG TABLET PO SCH (09:12)
[2023-08-05 09:37] VITALS: BP 114/73; PULSE 66; RESP 19; TEMP 98.3; O2SAT 98
[2023-08-05 09:46] LABS: RBC MORPHOLOGY COMMENT ABNORMAL RBC MORPH
[2023-08-05 11:01] LABS: GLUCOMETER DEV NAME(LOC) 6N.1B; GLUCOSE,POINT OF CARE 102 MG/DL (70-110)
[2023-08-05 16:09] VITALS: BP 118/70; PULSE 84; RESP 19; TEMP 97.6
[2023-08-05 18:45] LABS: GLUCOMETER DEV NAME(LOC) 6N.2B; GLUCOSE,POINT OF CARE 311 MG/DL (70-110)
[2023-08-05 18:45] LABS: GLUCOMETER DEV NAME(LOC) 6N.2B; GLUCOSE,POINT OF CARE 297 MG/DL (70-110)
[2023-08-05 19:47] VITALS: BP 110/56; PULSE 91; RESP 18; TEMP 98.7
[2023-08-05 21:00] VITALS: O2SAT 98
[2023-08-05] MEDS ORDERED: INSULIN GLARGINE,HUM.REC.ANLOG 100 UNITS/ML SQ SCH (21:00)
[2023-08-05] MEDS: ATORVASTATIN CALCIUM 10 MG TABLET PO SCH (21:05)
[2023-08-06 04:55] VITALS: BP 117/60; PULSE 73; RESP 18; TEMP 98.9
[2023-08-06 05:26] LABS: GLUCOMETER DEV NAME(LOC) 6S.2; GLUCOSE,POINT OF CARE 132 MG/DL (70-110)
[2023-08-06 05:26] LABS: GLUCOMETER DEV NAME(LOC) 6S.2; GLUCOSE,POINT OF CARE 238 MG/DL (70-110)
[2023-08-06 07:26] LABS: BASOPHILS % (AUTO) 0.5 % (0.0-2.0); EOSINOPHILS % (AUTO) 0.3 % (1.0-6.0); HEMATOCRIT 45.5 % (41-53); HEMOGLOBIN 14.3 g/dL (13.5-17.5); LYMPHOCYTES # (AUTO) 0.5 K/uL (1.0-4.8); LYMPHOCYTES % (AUTO) 6.8 % (22.0-44.0); MEAN CORPUSCULAR HEMOGLOBIN 21.3 pg (26.0-34.0); MEAN CORPUSCULAR HGB CONC 31.5 G/dL (31.0-37.0); MEAN CORPUSCULAR VOLUME 68 fL (80-100); MONOCYTES # (AUTO) 0.7 K/uL (0.1-1.0); MONOCYTES % (AUTO) 8.6 % (2.0-9.0); NEUTROPHILS # (AUTO) 6.7 K/uL (1.8-7.7); NEUTROPHILS % (AUTO) 83.8 % (40.0-70.0); PLATELET COUNT (AUTO) 294 K/uL (150-450); RED BLOOD CELL COUNT(AUTO) 6.74 MIL/uL (4.50-5.90); RED CELL DISTRIBUTION WIDTH 16.4 % (11.5-14.5); WHITE BLOOD COUNT (AUTO) 8.1 K/uL (4.5-11.0)
[2023-08-06 07:39] LABS: CALCIUM, TOTAL 8.4 mg/dL (8.8-10.5); CREATININE 2.04 mg/dL (0.60-1.30); POTASSIUM 4.2 mmol/L (3.5-5.1)
[2023-08-06 08:19] LABS: RBC MORPHOLOGY COMMENT ABNORMAL RBC MORPH
[2023-08-06] MEDS: LOSARTAN POTASSIUM 25 MG TABLET PO SCH (08:39)
[2023-08-06] MEDS: CARVEDILOL 6.25 MG TABLET PO SCH (08:39)
[2023-08-06] MEDS: DOCUSATE SODIUM 100 MG CAPSULE PO SCH (08:39)
[2023-08-06] MEDS: PANTOPRAZOLE SODIUM 40 MG DR TABLET PO SCH (08:39)
[2023-08-06] MEDS: FLUTICASONE/VILANTEROL 200-25 MCG/INH INHALER [14] IH SCH (08:40)
[2023-08-06] MEDS: HEPARIN SODIUM,PORCINE 5,000 UNITS/ML VIAL SQ SCH (08:40)
[2023-08-06 08:44] VITALS: BP 131/79; PULSE 80; RESP 18; TEMP 98.5
[2023-08-06] MEDS ORDERED: PredniSONE 20 MG TABLET PO SCH (09:00)
[2023-08-06] MEDS ORDERED: GLIP5TAB16 PO (10:07)
[2023-08-06 10:31] LABS: GLUCOMETER DEV NAME(LOC) 6N.2B; GLUCOSE,POINT OF CARE 168 MG/DL (70-110)
[2023-08-06] MEDS: INSULIN LISPRO 100 UNITS/ML SQ PRN (11:53)
[2023-08-06 12:46] LABS: GLUCOMETER DEV NAME(LOC) 6N.1B; GLUCOSE,POINT OF CARE 243 MG/DL (70-110)
== END 2023-08-06 12:21 | disposition home or self-care (01) | DRG 291 ==
LOC: EMS 02:50 → AHU 05:00 → 5S 09:38 → 6S 08-04 15:15
PROVIDERS: ADMIT Internal Medicine; ATTEND Internal Medicine
DX: I13.0 Hypertensive heart and chronic kidney disease with heart failure and stage 1 through stage 4 chronic kidney disease, or unspecified chronic kidney disease (principal); I50.23 Acute on chronic systolic (congestive) heart failure; J96.01 Acute respiratory failure with hypoxia; J44.1 Chronic obstructive pulmonary disease with (acute) exacerbation; J44.0 Chronic obstructive pulmonary disease with (acute) lower respiratory infection; N17.9 Acute kidney failure, unspecified; E11.22 Type 2 diabetes mellitus with diabetic chronic kidney disease; J20.9 Acute bronchitis, unspecified; F17.210 Nicotine dependence, cigarettes, uncomplicated; N18.30 Chronic kidney disease, stage 3 unspecified; N40.0 Benign prostatic hyperplasia without lower urinary tract symptoms; Z20.822 Contact with and (suspected) exposure to COVID-19; I25.10 Atherosclerotic heart disease of native coronary artery without angina pectoris; E78.00 Pure hypercholesterolemia, unspecified; F19.10 Other psychoactive substance abuse, uncomplicated; Z95.5 Presence of coronary angioplasty implant and graft; Z79.899 Other long term (current) drug therapy; Z87.01 Personal history of pneumonia (recurrent); Z79.84 Long term (current) use of oral hypoglycemic drugs
CPT/HCPCS: 71045; 80048; 80053; 80061; 81001; 82550; 82962; 83036; 83880; 84484; 85025; 85610; 85730; 87804; 90686; 93005; 93306; 94640; 99285; J1644; J1815; J1940; J2920; J2930; Q9967; 36415-L1; 36415-TC; G0008; J7613

== ENCOUNTER 2023-10-26 18:30 | Emergency (ER) | payer MEDICARE, OTHER ==
[~2023-10-26] VITALS: Ht 165.1 cm; Wt 68.2 kg
[~2023-10-26 18:30] MED LIST changes: +GLIP5TAB16 PO; -PERM60CR19 TP
[2023-10-26 18:41] VITALS: TEMP 97.9
[2023-10-26 19:01] LABS: GLUCOMETER DEV NAME(LOC) ER.6; GLUCOSE,POINT OF CARE 198 MG/DL (70-110)
[2023-10-26 19:02] LABS: BASOPHILS % (AUTO) 1.4 % (0.0-2.0); HEMOGLOBIN 12.3 g/dL (13.5-17.5); LYMPHOCYTES # (AUTO) 1.2 K/uL (1.0-4.8); LYMPHOCYTES % (AUTO) 14.9 % (22.0-44.0); MEAN CORPUSCULAR HEMOGLOBIN 20.9 pg (26.0-34.0); MEAN CORPUSCULAR HGB CONC 30.8 G/dL (31.0-37.0); MEAN CORPUSCULAR VOLUME 68 fL (80-100); MONOCYTES # (AUTO) 0.6 K/uL (0.1-1.0); MONOCYTES % (AUTO) 7.5 % (2.0-9.0); NEUTROPHILS # (AUTO) 5.3 K/uL (1.8-7.7); NEUTROPHILS % (AUTO) 67.2 % (40.0-70.0); PLATELET COUNT (AUTO) 353 K/uL (150-450); RED BLOOD CELL COUNT(AUTO) 5.91 MIL/uL (4.50-5.90); RED CELL DISTRIBUTION WIDTH 17.7 % (11.5-14.5); WHITE BLOOD COUNT (AUTO) 7.9 K/uL (4.5-11.0)
[2023-10-26 19:14] LABS: CALCIUM, TOTAL 9.1 mg/dL (8.8-10.5); CREATININE 2.07 mg/dL (0.60-1.30); POTASSIUM 5.1 mmol/L (3.5-5.1)
[2023-10-26 19:19] LABS: ALBUMIN 3.5 g/dL (3.4-5.0); BILIRUBIN,TOTAL 0.5 mg/dL (0.1-1.0); TOTAL PROTEIN, SERUM 8.1 g/dL (6.4-8.2)
[2023-10-26 19:27] LABS: RBC MORPHOLOGY COMMENT ABNORMAL RBC MORPH
[2023-10-26] MEDS ORDERED: FUROSEMIDE 20 MG TABLET PO ONE (20:45)
[2023-10-26] MEDS ORDERED: FURO-151 PO (20:50)
[2023-10-26 21:03] VITALS: BP 133/99; PULSE 92; RESP 20
== END 2023-10-26 20:59 | disposition home or self-care (01) ==
LOC: EMS 18:34
DX: G89.29 Other chronic pain (principal); I25.10 Atherosclerotic heart disease of native coronary artery without angina pectoris; I11.0 Hypertensive heart disease with heart failure; J44.9 Chronic obstructive pulmonary disease, unspecified; E78.00 Pure hypercholesterolemia, unspecified; F17.210 Nicotine dependence, cigarettes, uncomplicated; F15.90 Other stimulant use, unspecified, uncomplicated; Z98.890 Other specified postprocedural states
CPT/HCPCS: 80053; 82962; 83880; 85025; 99283

== ENCOUNTER 2024-11-24 12:26 | Inpatient (IN) | payer MEDICARE, OTHER ==
[~2024-11-24] VITALS: Ht 165.1 cm; Wt 64.0 kg
[~2024-11-24 12:26] MED LIST changes: +DOXY-354 PO; -FURO-151 PO; +FURO20TA5 PO
[2024-11-24] MEDS ORDERED: EMPA10TA3 PO (12:31)
[2024-11-24] MEDS ORDERED: METO25 PO (12:31)
[2024-11-24] MEDS ORDERED: FURO40TA5 PO (12:31)
[2024-11-24] MEDS ORDERED: INSU3INS3 SQ (12:31)
[2024-11-24] MEDS ORDERED: LOSA-382 PO (12:31)
[2024-11-24] MEDS ORDERED: AMIO200 PO (12:31)
[2024-11-24] MEDS ORDERED: INSU200I8 SQ (12:31)
[2024-11-24] MEDS ORDERED: ATOR40TA71 PO (12:31)
[2024-11-24] MEDS ORDERED: APIX2.5T PO (12:31)
[2024-11-24 13:29] LABS: EOSINOPHILS % (AUTO) 5.9 % (1.0-6.0); HEMATOCRIT 42.3 % (41-53); HEMOGLOBIN 13.1 g/dL (13.5-17.5); LYMPHOCYTES # (AUTO) 0.7 K/uL (1.0-4.8); LYMPHOCYTES % (AUTO) 15.2 % (22.0-44.0); MEAN CORPUSCULAR HEMOGLOBIN 21.2 pg (26.0-34.0); MEAN CORPUSCULAR HGB CONC 31.1 G/dL (31.0-37.0); MEAN CORPUSCULAR VOLUME 68 fL (80-100); MONOCYTES # (AUTO) 0.5 K/uL (0.1-1.0); MONOCYTES % (AUTO) 10.6 % (2.0-9.0); NEUTROPHILS # (AUTO) 3.3 K/uL (1.8-7.7); NEUTROPHILS % (AUTO) 67.3 % (40.0-70.0); PLATELET COUNT (AUTO) 260 K/uL (150-450); RED BLOOD CELL COUNT(AUTO) 6.21 MIL/uL (4.50-5.90); RED CELL DISTRIBUTION WIDTH 17.4 % (11.5-14.5); WHITE BLOOD COUNT (AUTO) 4.9 K/uL (4.5-11.0)
[2024-11-24 13:32] LABS: ANION GAP 7 mmol/L (8-16); CALCIUM, TOTAL 8.5 mg/dL (8.8-10.5); CARBON DIOXIDE 27 mmol/L (22-29); CHLORIDE 103 mmol/L (98-107); CREATININE 2.25 mg/dL (0.60-1.30); GLOMERULAR FILTR. RATE CALC 30 mL/min (>60); GLUCOSE,RANDOM 173 mg/dL (70-110); POTASSIUM 4.3 mmol/L (3.5-5.1); SODIUM SERUM 137 mmol/L (136-145); UREA NITROGEN, BLOOD 30 mg/dL (7-18)
[2024-11-24 13:38] LABS: ALBUMIN 2.9 g/dL (3.4-5.0); BILIRUBIN,DIRECT 0.1 mg/dL (0.00-0.20); BILIRUBIN,TOTAL 0.4 mg/dL (0.1-1.0); TOTAL PROTEIN, SERUM 7.2 g/dL (6.4-8.2)
[2024-11-24 13:41] LABS: PROTHROMBIN TIME 10.2 SEC (9.4-11.6)
[2024-11-24 13:42] LABS: C-REACTIVE PROTEIN QUANT 0.88 mg/dL (0.00-0.30); TROPONIN I-HIGH SENSITIVITY 33 ng/L (<76)
[2024-11-24 13:44] LABS: COVID AG,FIA SOURCE NASAL SWAB
[2024-11-24 13:50] LABS: B-TYPE NATRIURETIC PEPTIDE 345 pg/mL (0-100)
[2024-11-24 14:04] LABS: INFLUENZA TYPE A NEGATIVE FOR TYPE A (NEGATIVE); INFLUENZA TYPE B NEGATIVE FOR TYPE B (NEGATIVE); SARS-COV2 (COVID) ANTIGEN,FIA Negative (Negative)
[2024-11-24 14:06] LABS: ERYTHROCYTE SEDIMENTATION RATE 58 MM/HR (0-20)
[2024-11-24 14:21] LABS: RBC MORPHOLOGY COMMENT ABNORMAL RBC MORPH
[2024-11-24] MEDS: FLUORESCEIN SODIUM 1 MG STRIP OU ONE (14:40)
[2024-11-24] MEDS: PROPARACAINE HCL 0.5% 15 ML OPHTHALMIC SOLUTION OU ONE (14:40)
[2024-11-24 15:22] LABS: APPEARANCE,URINE CLEAR (CLEAR); BILIRUBIN,URINE NEGATIVE (NEGATIVE); COLOR,URINE LIGHT YELLOW (YELLOW); GLUCOSE, URINE (UA) 150-200 mg/dL (NEGATIVE); KETONES,URINE NEGATIVE (NEGATIVE); LEUKOCYTE ESTERASE ,URINE NEGATIVE (NEGATIVE); NITRATE,URINE NEGATIVE (NEGATIVE); OCCULT BLOOD,URINE NEGATIVE (NEGATIVE); PH,URINE 6.5 (5.0-8.0); PH,URINE DRUG SCREEN 6.5 (5.0-8.0); PROTEIN,URINE TRACE mg/dL (NEGATIVE); SPECIFIC GRAVITIY, URINE 1.013 (1.003-1.030); UROBILINOGEN,URINE <=1.0 mg/dL (<=1.0)
[2024-11-24 15:49] LABS: BACTERIA,URINE None Seen /HPF (None Seen); RBC,URINE None Seen /HPF (0-2); SQUAMOUS EPITHELIAL CELL,UR None Seen /LPF (None Seen); WBC,URINE None Seen /HPF (0-5)
[2024-11-24] MEDS ORDERED: ACETAMINOPHEN 325 MG TABLET PO PRN (16:00)
[2024-11-24] MEDS: LOSARTAN POTASSIUM 25 MG TABLET PO SCH (16:18)
[2024-11-24] MEDS: HEPARIN SODIUM,PORCINE 5,000 UNITS/ML VIAL SQ SCH (16:19)
[2024-11-24 16:28] LABS: AMPHET/METH SCREEN,URINE POSITIVE (NEGATIVE); BARBITURATE SCREEN, URINE NEGATIVE (NEGATIVE); BENZODIAZEPINES SCREEN,URINE NEGATIVE (NEGATIVE); CANNABINOID SCREEN,URINE NEGATIVE (NEGATIVE); COCAINE SCREEN,URINE NEGATIVE (NEGATIVE); METHADONE SCREEN, URINE NEGATIVE (NEGATIVE); OPIATE SCREEN,URINE NEGATIVE (NEGATIVE); PHENCYCLIDINE SCREEN,URINE NEGATIVE (NEGATIVE)
[2024-11-24 16:33] LABS: ALCOHOL, URINE DRUG SCREEN NEGATIVE (NEGATIVE)
[2024-11-24 16:40] VITALS: BP 168/91; PULSE 74; RESP 18; TEMP 97.7; O2SAT 100
[2024-11-24 19:12] VITALS: BP 140/79; PULSE 85; RESP 18; TEMP 97.9; O2SAT 97
[2024-11-24] MEDS: DOCUSATE SODIUM 100 MG CAPSULE PO SCH (21:00)
[2024-11-24 23:44] VITALS: BP 142/84; PULSE 81; RESP 18; TEMP 97.6; O2SAT 97
[2024-11-25 04:30] VITALS: BP 122/71; PULSE 80; RESP 18; TEMP 97.7; O2SAT 96
[2024-11-25 08:00] VITALS: BP 121/71; PULSE 61; RESP 18; TEMP 97.6; O2SAT 98
[2024-11-25] MEDS: FAMOTIDINE 20 MG TABLET PO SCH (08:45)
[2024-11-25] MEDS: ATORVASTATIN CALCIUM 20 MG TABLET PO SCH (08:45)
[2024-11-25] MEDS: ASPIRIN 81 MG CHEWABLE TABLET PO SCH (08:46)
[2024-11-25] MEDS: FUROSEMIDE 20 MG/2 ML VIAL IVP SCH (08:51)
[2024-11-25 12:00] VITALS: BP 132/76; PULSE 67; RESP 19; TEMP 97.9; O2SAT 97
[2024-11-25 16:05] VITALS: BP 131/80; PULSE 72; RESP 18; TEMP 97.8; O2SAT 98
[2024-11-25 19:19] VITALS: BP 136/80; PULSE 76; RESP 17; TEMP 97.8; O2SAT 98
[2024-11-26 00:32] VITALS: BP 143/73; PULSE 84; RESP 18; TEMP 98.1; O2SAT 97
[2024-11-26 04:44] VITALS: BP 139/77; PULSE 83; RESP 18; TEMP 98.2; O2SAT 97
[2024-11-26 06:07] LABS: HEPATITIS C AB (EIA) Non Reactive (Non Reactive)
[2024-11-26 07:37] LABS: BASOPHILS % (AUTO) 0.7 % (0.0-2.0); EOSINOPHILS % (AUTO) 6.9 % (1.0-6.0); HEMATOCRIT 46.1 % (41-53); HEMOGLOBIN 14.5 g/dL (13.5-17.5); LYMPHOCYTES # (AUTO) 0.9 K/uL (1.0-4.8); LYMPHOCYTES % (AUTO) 15.7 % (22.0-44.0); MEAN CORPUSCULAR HEMOGLOBIN 21.5 pg (26.0-34.0); MEAN CORPUSCULAR HGB CONC 31.4 G/dL (31.0-37.0); MEAN CORPUSCULAR VOLUME 69 fL (80-100); MONOCYTES # (AUTO) 0.5 K/uL (0.1-1.0); MONOCYTES % (AUTO) 8.9 % (2.0-9.0); NEUTROPHILS # (AUTO) 3.8 K/uL (1.8-7.7); NEUTROPHILS % (AUTO) 67.8 % (40.0-70.0); PLATELET COUNT (AUTO) 292 K/uL (150-450); RED BLOOD CELL COUNT(AUTO) 6.72 MIL/uL (4.50-5.90); RED CELL DISTRIBUTION WIDTH 16.9 % (11.5-14.5); WHITE BLOOD COUNT (AUTO) 5.7 K/uL (4.5-11.0)
[2024-11-26 07:41] LABS: RBC MORPHOLOGY COMMENT ABNORMAL RBC MORPH
[2024-11-26 07:42] LABS: CALCIUM, TOTAL 8.5 mg/dL (8.8-10.5); CREATININE 2.02 mg/dL (0.60-1.30); POTASSIUM 4.7 mmol/L (3.5-5.1)
[2024-11-26 08:33] VITALS: BP 130/75; PULSE 78; RESP 18; TEMP 97.8; O2SAT 98
[2024-11-26] MEDS ORDERED: INSULIN LISPRO 100 UNITS/ML SQ PRN (09:45)
[2024-11-26] MEDS ORDERED: DEXTROSE 50%-WATER 25 GM/50 ML SYRINGE IVP PRN (09:45)
[2024-11-26 13:35] VITALS: BP 129/78; PULSE 75; RESP 19; TEMP 98; O2SAT 98
[2024-11-26 16:09] VITALS: BP 129/77; PULSE 76; RESP 19; TEMP 97.8; O2SAT 97
== END 2024-11-26 17:40 | disposition home or self-care (01) | DRG 291 ==
LOC: EMS 12:29 → EDH 15:18 → 5N 16:37
PROVIDERS: ADMIT Internal Medicine; ATTEND Internal Medicine
DX: I13.0 Hypertensive heart and chronic kidney disease with heart failure and stage 1 through stage 4 chronic kidney disease, or unspecified chronic kidney disease (principal); I50.23 Acute on chronic systolic (congestive) heart failure; N17.9 Acute kidney failure, unspecified; N18.9 Chronic kidney disease, unspecified; Z20.822 Contact with and (suspected) exposure to COVID-19; E11.22 Type 2 diabetes mellitus with diabetic chronic kidney disease; F15.10 Other stimulant abuse, uncomplicated; I25.10 Atherosclerotic heart disease of native coronary artery without angina pectoris; J44.9 Chronic obstructive pulmonary disease, unspecified; N40.0 Benign prostatic hyperplasia without lower urinary tract symptoms; Z91.199 Patient's noncompliance with other medical treatment and regimen due to unspecified reason; Z82.49 Family history of ischemic heart disease and other diseases of the circulatory system; Z87.891 Personal history of nicotine dependence; Z95.5 Presence of coronary angioplasty implant and graft
CPT/HCPCS: 70450; 71045; 80048; 80076; 80307; 81001; 83880; 84484; 85025; 85610; 85651; 86140; 86707; 86803; 87804; 93005; 99285; J1644; J1940; 36415-L1; 36415-TC

== ENCOUNTER 2025-04-28 11:43 | Emergency (ER) | payer MEDICARE, OTHER ==
[~2025-04-28] VITALS: Ht 165.1 cm; Wt 68.0 kg
[~2025-04-28 11:43] MED LIST changes: +ATOR40TA71 PO; -CARV6.2534 PO; -DOXY-354 PO; +EMPA10TA3 PO; -FURO20TA5 PO; +FURO40TA5 PO; -GLIP5TAB16 PO; -LOSA-381 PO; +LOSA-382 PO
[2025-04-28] MEDS ORDERED: AMIO200T74 PO ×2 (11:49→12:36)
[2025-04-28] MEDS ORDERED: INSU200I4 SQ (11:49)
[2025-04-28] MEDS ORDERED: METO25 PO ×2 (11:49→12:36)
[2025-04-28 11:53] VITALS: BP 138/84; PULSE 91; RESP 20; TEMP 97.5; O2SAT 99
[2025-04-28] MEDS ORDERED: LOSA-382 PO (12:36)
[2025-04-28] MEDS ORDERED: EMPA10TA3 PO (12:36)
[2025-04-28] MEDS ORDERED: FURO40TA5 PO (12:36)
[2025-04-28] MEDS ORDERED: ATOR40TA71 PO (12:36)
[2025-04-28 22:56] LABS: GLUCOMETER DEV NAME(LOC) ER.7; GLUCOSE,POINT OF CARE 206 MG/DL (70-110)
== END 2025-04-28 14:39 | disposition home or self-care (01) ==
LOC: EMS 11:51
DX: I11.0 Hypertensive heart disease with heart failure (principal); I50.9 Heart failure, unspecified; J44.89 Other specified chronic obstructive pulmonary disease; I25.10 Atherosclerotic heart disease of native coronary artery without angina pectoris; E11.9 Type 2 diabetes mellitus without complications; E78.00 Pure hypercholesterolemia, unspecified; F17.210 Nicotine dependence, cigarettes, uncomplicated; F15.10 Other stimulant abuse, uncomplicated; Z79.4 Long term (current) use of insulin; Z95.5 Presence of coronary angioplasty implant and graft; Z79.899 Other long term (current) drug therapy
CPT/HCPCS: 82962; 99283

== ENCOUNTER 2025-06-30 00:17 | Inpatient (IN) | payer MEDICARE, OTHER ==
[~2025-06-30] VITALS: Ht 165.1 cm; Wt 68.2 kg
[~2025-06-30 00:17] MED LIST changes: +AMIO200T74 PO; +INSU200I4 SQ; +METO25 PO
[2025-06-30 01:15] LABS: GLUCOMETER DEV NAME(LOC) ER.7; GLUCOSE,POINT OF CARE 168 MG/DL (70-110)
[2025-06-30 01:20] VITALS: PULSE 100; RESP 24; O2SAT 97
[2025-06-30] MEDS: ALBUTEROL SULFATE 2.5 MG/0.5 ML NEB SOLUTION NEB ONE (01:20)
[2025-06-30] MEDS: IPRATROPIUM BROMIDE 0.5 MG/2.5 ML NEB SOLUTION NEB ONE (01:20)
[2025-06-30 01:24] LABS: PLATELET COUNT (AUTO) 296 K/uL (150-450); RED BLOOD CELL COUNT(AUTO) 7.30 MIL/uL (4.50-5.90); RED CELL DISTRIBUTION WIDTH 17.1 % (11.5-14.5); WHITE BLOOD COUNT (AUTO) 7.0 K/uL (4.5-11.0)
[2025-06-30 01:31] LABS: CALCIUM, TOTAL 8.8 mg/dL (8.8-10.5); CREATININE 1.60 mg/dL (0.60-1.30); GLOMERULAR FILTR. RATE CALC 44 mL/min (>60); GLUCOSE,RANDOM 170 mg/dL (70-110); SODIUM SERUM 138 mmol/L (136-145); UREA NITROGEN, BLOOD 29 mg/dL (7-18)
[2025-06-30 01:35] VITALS: PULSE 91; RESP 22; O2SAT 99
[2025-06-30 01:35] LABS: ASPARTATE AMINOTRANSFERASE 18.0 U/L (15-37); CREATINE KINASE, TOTAL ONLY 117.0 U/L (39-308); TOTAL PROTEIN, SERUM 7.8 g/dL (6.4-8.2)
[2025-06-30 01:40] LABS: TROPONIN I-HIGH SENSITIVITY 65 ng/L (<76)
[2025-06-30 01:57] LABS: PH,URINE DRUG SCREEN 6.5 (5.0-8.0)
[2025-06-30 01:58] LABS: APPEARANCE,URINE CLEAR (CLEAR); GLUCOSE, URINE (UA) 300-500 mg/dL (NEGATIVE); LEUKOCYTE ESTERASE ,URINE NEGATIVE (NEGATIVE); NITRATE,URINE NEGATIVE (NEGATIVE); OCCULT BLOOD,URINE NEGATIVE (NEGATIVE); SPECIFIC GRAVITIY, URINE 1.011 (1.003-1.030)
[2025-06-30 02:04] LABS: ALCOHOL, URINE DRUG SCREEN NEGATIVE (NEGATIVE); AMPHET/METH SCREEN,URINE POSITIVE (NEGATIVE); BARBITURATE SCREEN, URINE NEGATIVE (NEGATIVE); CANNABINOID SCREEN,URINE NEGATIVE (NEGATIVE); COCAINE SCREEN,URINE NEGATIVE (NEGATIVE); METHADONE SCREEN, URINE NEGATIVE (NEGATIVE)
[2025-06-30] MEDS: FUROSEMIDE 20 MG/2 ML VIAL IVP ONE ×2 (02:06→03:17)
[2025-06-30 02:09] LABS: SQUAMOUS EPITHELIAL CELL,UR Few /LPF (None Seen)
[2025-06-30 02:11] LABS: RBC MORPHOLOGY COMMENT ABNORMAL RBC MORPH
[2025-06-30] MEDS ORDERED: ALBUTEROL SULFATE 2.5 MG/0.5 ML NEB SOLUTION NEB PRN (05:45)
[2025-06-30] MEDS ORDERED: ACETAMINOPHEN 325 MG TABLET PO PRN (05:45)
[2025-06-30] MEDS ORDERED: ONDANSETRON HCL 4 MG/2 ML VIAL IVP PRN (05:45)
[2025-06-30 06:53] VITALS: BP 145/98; PULSE 102; RESP 19; TEMP 98.2; O2SAT 99
[2025-06-30] MEDS: FAMOTIDINE 20 MG TABLET PO SCH (08:52)
[2025-06-30] MEDS: DOCUSATE SODIUM 100 MG CAPSULE PO SCH (08:52)
[2025-06-30] MEDS: HEPARIN SODIUM,PORCINE 5,000 UNITS/ML VIAL SQ SCH (08:52)
[2025-06-30 11:33] VITALS: BP 137/89; PULSE 100; RESP 18; TEMP 97.7; O2SAT 99
[2025-06-30 15:29] VITALS: BP 135/78; PULSE 98; RESP 18; TEMP 97.9; O2SAT 97
[2025-06-30 20:37] VITALS: BP 124/85; PULSE 105; RESP 16; TEMP 97.7; O2SAT 97
[2025-07-01 00:10] VITALS: BP 134/95; PULSE 101; RESP 16; TEMP 97.9; O2SAT 96
[2025-07-01 04:52] VITALS: BP 141/98; PULSE 97; RESP 16; TEMP 98.1; O2SAT 97
[2025-07-01 07:29] VITALS: BP 136/77; PULSE 100; RESP 18; TEMP 98; O2SAT 97
[2025-07-01 07:30] LABS: PLATELET COUNT (AUTO) 283 K/uL (150-450); RED BLOOD CELL COUNT(AUTO) 6.73 MIL/uL (4.50-5.90); RED CELL DISTRIBUTION WIDTH 16.5 % (11.5-14.5); WHITE BLOOD COUNT (AUTO) 7.7 K/uL (4.5-11.0)
[2025-07-01 07:38] LABS: RBC MORPHOLOGY COMMENT ABNORMAL RBC MORPH
[2025-07-01 07:47] LABS: CALCIUM, TOTAL 8.3 mg/dL (8.8-10.5); CREATININE 1.88 mg/dL (0.60-1.30); GLOMERULAR FILTR. RATE CALC 36.0 mL/min (>60); GLUCOSE,RANDOM 157.0 mg/dL (70-110); SODIUM SERUM 135.0 mmol/L (136-145); UREA NITROGEN, BLOOD 39.0 mg/dL (7-18)
[2025-07-01 11:17] VITALS: BP 139/88; PULSE 96; RESP 18; TEMP 97.5; O2SAT 97
[2025-07-01] MEDS: PERMETHRIN 5% 60 GM CREAM TP ONE (11:18)
[2025-07-01 15:54] VITALS: BP 149/88; PULSE 94; RESP 18; TEMP 97.7; O2SAT 98
[2025-07-01 20:00] VITALS: BP 145/83; PULSE 88; RESP 19; TEMP 97.5; O2SAT 100
[2025-07-02 00:26] VITALS: BP 158/86; PULSE 82; RESP 18; TEMP 97.9; O2SAT 96
[2025-07-02 04:01] VITALS: BP 157/94; PULSE 90; RESP 17; TEMP 98.1; O2SAT 98
[2025-07-02 08:00] VITALS: BP 144/87; PULSE 82; RESP 16; TEMP 97.9; O2SAT 99
[2025-07-02] MEDS: ATORVASTATIN CALCIUM 40 MG TABLET PO SCH (08:23)
[2025-07-02] MEDS: EMPAGLIFLOZIN 10 MG TABLET PO SCH (08:23)
[2025-07-02] MEDS: ASPIRIN 81 MG DR TABLET PO SCH (08:23)
[2025-07-02] MEDS: LOSARTAN POTASSIUM 25 MG TABLET PO SCH (08:24)
== END 2025-07-02 08:50 | disposition left against medical advice (07) | DRG 291 ==
LOC: EMS 00:46 → EDH 05:33 → 5S 06:39
PROVIDERS: ADMIT Internal Medicine; ATTEND Internal Medicine
DX: I13.0 Hypertensive heart and chronic kidney disease with heart failure and stage 1 through stage 4 chronic kidney disease, or unspecified chronic kidney disease (principal); I50.23 Acute on chronic systolic (congestive) heart failure; N17.9 Acute kidney failure, unspecified; J44.9 Chronic obstructive pulmonary disease, unspecified; F15.10 Other stimulant abuse, uncomplicated; N40.0 Benign prostatic hyperplasia without lower urinary tract symptoms; E78.00 Pure hypercholesterolemia, unspecified; F17.210 Nicotine dependence, cigarettes, uncomplicated; I25.10 Atherosclerotic heart disease of native coronary artery without angina pectoris; E11.22 Type 2 diabetes mellitus with diabetic chronic kidney disease; N18.30 Chronic kidney disease, stage 3 unspecified; Z91.199 Patient's noncompliance with other medical treatment and regimen due to unspecified reason; Z95.5 Presence of coronary angioplasty implant and graft; Z87.01 Personal history of pneumonia (recurrent); Z82.49 Family history of ischemic heart disease and other diseases of the circulatory system; Z79.899 Other long term (current) drug therapy; Z71.6 Tobacco abuse counseling
CPT/HCPCS: 71045; 80048; 80076; 80307; 81001; 82550; 82962; 83880; 84484; 85025; 85610; 85730; 93005; 93306; 94640; 94760; 99291; J1644; J1938; 36415-L1; 36415-TC; J7613